=== PATIENT | female | born 2000 | race Caucasian/White ===

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

== ENCOUNTER 2018-02-09 14:50 | Emergency (ER) | payer SELFPAY ==
--- NOTE | 2018-02-09 16:41 | ER Document Report ---
ED Medical Screen (RME) - General Chief Complaint: STD Exposure Stated Complaint: PAINFUL URINATION/STD CHECK Time Seen by Provider: 02/09/18 16:35 TRAVEL OUTSIDE OF THE [place] IN LAST 30 DAYS: No - Related Data Allergies/Adverse Reactions: No Known Allergies Allergy (Verified 02/09/18 14:51) Past Medical History Pulmonary Medical History: Reports: Hx Pneumonia Renal/ Medical History: Denies: Hx Peritoneal Dialysis Past Surgical History: Reports: Hx Orthopedic Surgery - Immunizations Immunizations up to date: Yes Hx Diphtheria, Pertussis, Tetanus Vaccination: Yes Physical Exam - Vital signs Vitals: Temp Pulse Resp BP Pulse Ox 99.5 F 76 16 112/42 L 99 02/09/18 14:55 02/09/18 14:55 02/09/18 14:55 02/09/18 14:55 02/09/18 14:55 Course - Re-evaluation Re-evalutation: Dysuria with pelvic discharge. I have seen and evaluated this patient in rapid medical exam. They will require reassessment potentially further diagnostics and a disposition determination from a secondary provider. - Vital Signs Vital signs: Temp Pulse Resp BP Pulse Ox 98.9 F 74 16 114/58 L 100 02/09/18 19:13 02/09/18 19:13 02/09/18 19:13 02/09/18 19:13 02/09/18 19:13 - Laboratory Laboratory results interpreted by me: 02/09/18 16:35 Urine Protein 100 H Ur Leukocyte Esterase LARGE H Doctor's Discharge - Discharge Clinical Impression: Urinary tract infection, Bacterial vaginosis Condition: Good Disposition: HOME, SELF-CARE Instructions: Cephalexin ([facility]), Urinary Tract Infection ([facility]) Additional Instructions: You were seen in the emergency department this afternoon for a urinary tract infection and bacterial vaginosis. Please take the medication and its entire T to help resolve your symptoms. You have also been given a shot of antibiotic and a azithromycin to preemptively treat for GC/chlamydia. If you develop high fever, develop severe pelvic pain, pass out, or have any other concerning symptoms please immediately return to the emergency department. VAGINOSIS, BACTERIAL: Your exam shows you have bacterial vaginosis. This condition is due to an overgrowth of bacteria in the vagina. Symptoms may include vaginal itching or pain, a smelly discharge, and sometimes burning with urination. Normally this is not transmitted by sexual contact. Vaginosis can be treated with oral or topical antibiotics. Metronidazole (Flagyl) pills are usually effective. Topical vaginal creams include Cleocin and Metro-Gel. You should avoid sexual contact until your symptoms are all better. Call the doctor if you develop pelvic pain, fever, or problems with urination, or if you don't improve as expected. ANTIBIOTIC THERAPY: You have been given an antibiotic prescription. It's important that you take all the medication, unless instructed otherwise by your physician. Failure to complete the entire course can result in relapse of your condition. Common side effects of antibiotics include nausea, intestinal cramping, or diarrhea. Women may develop vaginal yeast infections, and babies can get yeast (thrush) in the mouth following the use of antibiotics. Contact your physician if you develop significant side effects from this medication. Allergy to this antibiotic can result in hives, wheezing, faintness, or itching. If symptoms of allergy occur, stop the medication and call the doctor. CEPHALOSPORINS: An antibiotic of the cephalosporin class has been prescribed. This type of antibiotic covers a wide variety of infections, including those of the skin, lungs, middle ear, and urinary tract. This antibiotic is somewhat similar to the penicillin family. In rare cases, a person who is allergic to penicillin will also be allergic to this medication. If you have had a severe allergic reaction to penicillin, and have not taken this antibiotic since that time, notify your doctor. Antibiotics which cover many germs ("broad spectrum" antibiotics) are more likely to cause diarrhea or "yeast" infections. Women prone to vaginal yeast problems may suffer an attack after taking this antibiotic. In infants, oral thrush (white spots "stuck" on the cheek) or yeast diaper rash may result. See your doctor if these problems occur. Call the doctor at once if you develop hives, itching, shortness of breath, or lightheadedness AZITHROMYCIN: Azithromycin (Zithromax) is a broad spectrum antibiotic in the same class as erythromycin. It can treat a variety of bacterial infections, but is most frequently used for respiratory infections. Azithromycin is extremely long-lasting. It accumulates in body tissues and continues to kill bacteria for many days. In order to improve absorption, Azithromycin should be taken at least one hour before or two hours after a meal. It does not have the same strong tendency to upset the stomach as erythromycin and is usually very well tolerated. Patients who have had a rash or other true allergic reactions to erythromycin should not take this medication. Call if you develop gastroint estinal distress, severe diarrhea, rash, hives, itching, or shortness of breath. METRONIDAZOLE: Metronidazole (Flagyl) has been prescribed. This medication is used to kill a type of bacteria called anaerobes, and protozoan parasites such as trichomonas and Giardia. Flagyl often causes a metallic taste in the mouth and mild nausea. Do not use alcohol in any form with Flagyl (including alcohol in medication elixirs). Flagyl interacts with alcohol to cause flushing, palpitations, headache, stomach cramps, and vomiting. Do not use Flagyl if you are taking Antabuse (disulfiram). Call the doctor at once if you develop rash, shortness of breath, itching, or lightheadedness. FOLLOW-UP CARE: If you have been referred to a physician for follow-up care, call the physicians office for an appointment as you were instructed or within the next two days. If you experience worsening or a significant change in your symptoms, notify the physician immediately or return to the Emergency Department at any time for re-evaluation. Prescriptions: Cephalexin Monohydrate [Keflex 500 mg Capsule] 500 mg PO BID 7 Days capsule Metronidazole [Flagyl 500 mg Tablet] 500 mg PO TID #30 tablet
[2018-02-09 17:22] LABS: APPEARANCE,URINE TURBID; BILIRUBIN,URINE NEGATIVE (NEGATIVE); GLUCOSE, URINE NEGATIVE (NEGATIVE); KETONES,URINE NEGATIVE (NEGATIVE); LEUKOCYTE ESTERASE,URINE LARGE (NEGATIVE); NITRITE,URINE NEGATIVE (NEGATIVE); PROTEIN,URINE 100 mg/dL (NEGATIVE); URINE SPECIFIC GRAVITY 1.027; UROBILINOGEN,URINE NEGATIVE mg/dL (<2.0)
[2018-02-09 17:28] LABS: BACTERIA (WET MOUNT) 4+ BACTERIA SEEN; EPITHELIALS (WET MOUNT) 4+ EPITHELIALS SEEN; RBCS (WET MOUNT) NO RBCS SEEN; T.VAGINALIS (WET MOUNT) NO TRICHOMONAS SEEN; WBCS (WET MOUNT) 4+ WBCS SEEN; YEAST (WET MOUNT) NO YEAST SEEN
[2018-02-09 17:37] LABS: COLOR,URINE YELLOW
[2018-02-09] MEDS ORDERED: CEFTRIAXONE INJ 1000 MG VIAL IM ONE (18:29)
[2018-02-09] MEDS ORDERED: METRONIDAZOLE 500 MG TABLET PO ONE (18:29)
[2018-02-09] MEDS ORDERED: AZITHROMYCIN 250 MG TABLET PO ONE (18:29)
--- NOTE | 2018-02-09 18:43 | ER Document Report ---
ED General - General Chief Complaint: STD Exposure Stated Complaint: PAINFUL URINATION/STD CHECK Time Seen by Provider: 02/09/18 16:35 Notes: 18-year-old sexually active female presents to the emergency department for dysuria and suprapubic pain. She states she has had the symptoms for 2 days and it "gold when I urinate". She also says that she is having "pelvic bone pain". She is concerned that she is been exposed to an STD. She is not on control. She is with the same partner. She denies any fevers, chills, nausea, vomiting, shortness of breath, chest pain, abdominal pain, diarrhea, abnormal vaginal discharge. She complains of dysuria, denies urinary frequency, denies urinary urgency. TRAVEL OUTSIDE OF THE [place] IN LAST 30 DAYS: No - Related Data Allergies/Adverse Reactions: No Known Allergies Allergy (Verified 02/09/18 14:51) Past Medical History - Social History Smoking Status: Current Every Day Smoker Frequency of alcohol use: None Drug Abuse: Marijuana, Other Family History: Reviewed & Not Pertinent Patient has suicidal ideation: No Patient has homicidal ideation: No Pulmonary Medical History: Reports: Hx Pneumonia Renal/ Medical History: Denies: Hx Peritoneal Dialysis Past Surgical History: Reports: Hx Orthopedic Surgery - Immunizations Immunizations up to date: Yes Hx Diphtheria, Pertussis, Tetanus Vaccination: Yes Review of Systems - Review of Systems Constitutional: See HPI EENT: See HPI Cardiovascular: See HPI Respiratory: See HPI Gastrointestinal: See HPI Genitourinary: See HPI Female Genitourinary: See HPI Musculoskeletal: No symptoms reported Skin: No symptoms reported Hematologic/Lymphatic: No symptoms reported Neurological/Psychological: No symptoms reported Physical Exam - Vital signs Vitals: Temp Pulse Resp BP Pulse Ox 99.5 F 76 16 112/42 L 99 02/09/18 14:55 02/09/18 14:55 02/09/18 14:55 02/09/18 14:55 02/09/18 14:55 - Notes Notes: Reviewed vital signs and nursing note as charted by RN. CONSTITUTIONAL: Well-appearing, well-nourished, acting appropriately for age HEAD: Normocephalic, atraumatic, no swelling EYES: PERRL, Conjunctivae clear, no drainage, EOMI, no scleral icterus ENT: External ears without lesions, External auditory canal is patent, airway patent, mucous membranes pink and moist NECK: Supple, no cervical lymphadenopathy, no masses CARD: Regular rate and rhythm, no murmurs, no rubs, no gallops, capillary refill < 2 seconds, symmetric pulses RESP: The lungs are clear to auscultation bilaterally, no wheezing, no rales, no rhonchi. Respiratory rate and effort are normal, normal chest excursion. No respiratory distress, no retractions, no stridor, no nasal flaring, no accessory muscle use. ABD/GI: Normal bowel sounds, non-distended, soft, non-tender, no rebound, no guarding, no palpable organomegaly EXT: Normal ROM in all joints, non-tender to palpation, no effusions, no edema SKIN: Normal color for age and race, warm, dry, good turgor, no acute lesions noted NEURO: No facial asymmetry, moves all extremities equally, motor and sensory function intact Course - Re-evaluation Re-evalutation: 02/09/18 18:48 18-year-old female presents emergency department for dysuria and suprapubic tenderness. Symptoms have been present for 2 days. She denies any other symptoms. Urinalysis results consistent for urinary tract infection. Patient performed self vaginal swab and results are positive for bacterial vaginosis. Trichomoniasis negative. GC chlamydia still pending. Will treat preemptively with Rocephin 1 gram IM and azithromycin 1 g p.o. Give first dose of Flagyl 500 mg p.o. for bacterial vaginosis and send patient home with a prescription for 10-day course 3 times daily. Plan is to give patient a prescription for Keflex 500 mg p.o. that she will take twice daily for 7 days. She is stable for discharge. - Vital Signs Vital signs: Temp Pulse Resp BP Pulse Ox 98.9 F 74 16 114/58 L 100 02/09/18 19:13 02/09/18 19:13 02/09/18 19:13 02/09/18 19:13 02/09/18 19:13 - Laboratory Laboratory results interpreted by me: 02/09/18 16:35 Urine Protein 100 H Ur Leukocyte Esterase LARGE H Discharge - Discharge Clinical Impression: Bacterial vaginosis Urinary tract infection Qualifiers: Urinary tract infection type: acute cystitis Hematuria presence: without hematuria Qualified Code(s): N30.00 - Acute cystitis without hematuria Condition: Good Disposition: HOME, SELF-CARE Instructions: Cephalexin ([facility]), Urinary Tract Infection ([facility]) Additional Instructions: You were seen in the emergency department this afternoon for a urinary tract infection and bacterial vaginosis. Please take the medication and its entire T to help resolve your symptoms. You have also been given a shot of antibiotic and a azithromycin to preemptively treat for GC/chlamydia. If you develop high fever, develop severe pelvic pain, pass out, or have any other concerning symptoms please immediately return to the emergency department. VAGINOSIS, BACTERIAL: Your exam shows you have bacterial vaginosis. This condition is due to an overgrowth of bacteria in the vagina. Symptoms may include vaginal itching or pain, a smelly discharge, and sometimes burning with urination. Normally this is not transmitted by sexual contact. Vaginosis can be treated with oral or topical antibiotics. Metronidazole (Flagyl) pills are usually effective. Topical vaginal creams include Cleocin and Metro-Gel. You should avoid sexual contact until your symptoms are all better. Call the doctor if you develop pelvic pain, fever, or problems with urination, or if you don't improve as expected. ANTIBIOTIC THERAPY: You have been given an antibiotic prescription. It's important that you take all the medication, unless instructed otherwise by your physician. Failure to complete the entire course can result in relapse of your condition. Common side effects of antibiotics include nausea, intestinal cramping, or diarrhea. Women may develop vaginal yeast infections, and babies can get yeast (thrush) in the mouth following the use of antibiotics. Contact your physician if you develop significant side effects from this medication. Allergy to this antibiotic can result in hives, wheezing, faintness, or itching. If symptoms of allergy occur, stop the medication and call the doctor. CEPHALOSPORINS: An antibiotic of the cephalosporin class has been prescribed. This type of antibiotic covers a wide variety of infections, including those of the skin, lungs, middle ear, and urinary tract. This antibiotic is somewhat similar to the penicillin family. In rare cases, a person who is allergic to penicillin will also be allergic to this medication. If you have had a severe allergic reaction to penicillin, and have not taken this antibiotic since that time, notify your doctor. Antibiotics which cover many germs ("broad spectrum" antibiotics) are more likely to cause diarrhea or "yeast" infections. Women prone to vaginal yeast problems may suffer an attack after taking this antibiotic. In infants, oral thrush (white spots "stuck" on the cheek) or yeast diaper rash may result. See your doctor if these problems occur. Call the doctor at once if you develop hives, itching, shortness of breath, or lightheadedness AZITHROMYCIN: Azithromycin (Zithromax) is a broad spectrum antibiotic in the same class as erythromycin. It can treat a variety of bacterial infections, but is most frequently used for respiratory infections. Azithromycin is extremely long-lasting. It accumulates in body tissues and continues to kill bacteria for many days. In order to improve absorption, Azithromycin should be taken at least one hour before or two hours after a meal. It does not have the same strong tendency to upset the stomach as erythromycin and is usually very well tolerated. Patients who have had a rash or other true allergic reactions to erythromycin should not take this medication. Call if you develop gastrointestinal distress, severe diarrhea, rash, hives, itching, or shortness of breath. METRONIDAZOLE: Metronidazole (Flagyl) has been prescribed. This medication is used to kill a type of bacteria called anaerobes, and protozoan parasites such as trichomonas and Giardia. Flagyl often causes a metallic taste in the mouth and mild nausea. Do not use alcohol in any form with Flagyl (including alcohol in medication elixirs). Flagyl interacts with alcohol to cause flushing, palpitations, headache, stomach cramps, and vomiting. Do not use Flagyl if you are taking Antabuse (disulfiram). Call the doctor at once if you develop rash, shortness of breath, itching, or lightheadedness. FOLLOW-UP CARE: If you have been referred to a physician for follow-up care, call the physicians office for an appointment as you were instructed or within the next two days. If you experience worsening or a significant change in your symptoms, notify the physician immediately or return to the Emergency Department at any time for re-evaluation. Prescriptions: RX: Cephalexin Monohydrate [Keflex 500 mg Capsule] 500 mg PO BID 7 Days capsule Metronidazole [Flagyl 500 mg Tablet] 500 mg PO TID #30 tablet
[2018-02-09 18:51] LABS: CHLAM PCR NOT DETECTED (NOT DETECT); GON PCR NOT DETECTED (NOT DETECT)
[2018-02-09] MEDS ORDERED: LIDOCAINE 1% INJ (10 MG/ML) 10 ML MDV ONE (18:56)
[2018-02-09 19:14] VITALS: BP 114/58
== END 2018-02-09 19:13 | disposition home or self-care (01) ==
LOC: ER 14:50
DX: N30.00 Acute cystitis without hematuria (principal); N76.0 Acute vaginitis; B96.89 Other specified bacterial agents as the cause of diseases classified elsewhere; R10.2 Pelvic and perineal pain; F17.200 Nicotine dependence, unspecified, uncomplicated
CPT/HCPCS: 99283; 96372; 87086; 87210; 81025; 87088; 81001; 87186; 87491; 87591; J0696

== ENCOUNTER 2018-06-02 14:53 | Emergency (ER) | payer SELFPAY ==
[2018-06-02 16:17] VITALS: BP 125/63
[2018-06-02] MEDS ORDERED: NORMAL SALINE 1000 ML 1,000 ML IV ONE (17:18)
[2018-06-02] MEDS ORDERED: METOCLOPRAMIDE HCL INJ/PF 10 MG/2 ML SDV IV ONE (17:18)
[2018-06-02 17:36] LABS: APPEARANCE,URINE CLEAR; BILIRUBIN,URINE NEGATIVE (NEGATIVE); COLOR,URINE STRAW; GLUCOSE, URINE NEGATIVE (NEGATIVE); KETONES,URINE NEGATIVE (NEGATIVE); LEUKOCYTE ESTERASE,URINE NEGATIVE (NEGATIVE); NITRITE,URINE NEGATIVE (NEGATIVE); PROTEIN,URINE NEGATIVE (NEGATIVE); URINE SPECIFIC GRAVITY 1.012; UROBILINOGEN,URINE NEGATIVE mg/dL (<2.0)
--- NOTE | 2018-06-02 17:42 | ER Document Report ---
ED General - General Chief Complaint: Abdominal Cramping Stated Complaint: ABDOMINAL CRAMPING Time Seen by Provider: 06/02/18 17:16 Mode of Arrival: Ambulatory Information source: Patient TRAVEL OUTSIDE OF THE [place] IN LAST 30 DAYS: No - HPI Patient complains to provider of: Lower abdominal cramping, irregular., Nausea vomiting Onset: Last week Onset/Duration: Persistent Quality of pain: Cramping Severity: Moderate Pain Level: 3 Associated symptoms: denies: Chills, Fever Exacerbated by: Denies Relieved by: Denies Similar symptoms previously: No Recently seen / treated by doctor: No Notes: 18-year-old female coming in today for irregular periods, lower abdominal cramping, spotting, with nausea and vomiting. She is concerned about being . History of methamphetamine abuse. - Related Data Allergies/Adverse Reactions: No Known Allergies Allergy (Verified 06/02/18 16:49) Past Medical History - General Information source: Patient - Social History Smoking Status: Current Every Day Smoker Frequency of alcohol use: Social Drug Abuse: Marijuana, Methamphetamine Family History: Reviewed & Not Pertinent Patient has suicidal ideation: No Patient has homicidal ideation: No Pulmonary Medical History: Reports: Hx Pneumonia Renal/ Medical History: Denies: Hx Peritoneal Dialysis Past Surgical History: Reports: Hx Orthopedic Surgery - Immunizations Immunizations up to date: Yes Hx Diphtheria, Pertussis, Tetanus Vaccination: Yes Review of Systems - Review of Systems Notes: Constitutional: No fevers. No chills. EENT: No eye redness. No eye pain. No ear pain. No sore throat. Cardiovascular: No chest pain. No palpitations. Respiratory: No cough. No shortness of breath. No respiratory distress. Gastrointestinal: Lower abdominal cramping, nausea and vomiting Genitourinary: Vaginal spotting Musculoskeletal: Atraumatic. No swelling. No deformities. Skin: No rash or lesions. Lymphatic: No swollen lymph nodes. Neurologic: No headache. No syncope. Psychiatric: No suicidal or homicidal ideation. Physical Exam - Vital signs Vitals: Temp Pulse Resp BP Pulse Ox 98.4 F 82 16 125/63 99 06/02/18 16:16 06/02/18 16:16 06/02/18 16:16 06/02/18 16:16 06/02/18 16:16 - Notes Notes: General: Well-developed, well-nourished. In no acute distress. Non-toxic appearing. Cardiac: Well-perfused. Regular rate and rhythm. No murmurs, rubs, or gallops. Pulmonary: No respiratory distress. No cyanosis. Bilateral lung fiels are clear to auscultation. Abdominal: Non-distended. Non-rigid. Tenderness palpation in the right lower quadrant. No guarding or rebound. HEENT: Head is atraumatic. Conjunctivae not reddened. No tearing. PERRL. EOMI. Orbits atraumatic. No periorbital swelling or erythema. Oropharynx is without erythema, swelling, or exudates. Neck: Supple. No adenopathy. No meningismus. Dermatologic: Warm with good turgor. No rash. Atraumatic. Chest: Atraumatic. No chest wall tenderness to palpation. Musculoskeletal: Moves all extremities well. No range of motion deficits. no muscular or joint tenderness. No paraspinal muscle tenderness. no midline spinal tenderness or step-off. Genitourinary: Examination deferred Neurologic: No gross neurologic deficits. Psychiatric: Normal mood. Course - Re-evaluation Re-evalutation: 06/02/18 17:41 Patient's test is positive. Because of her right lower quadrant tenderness, were going to do the full labs and work-up including pelvic and ultrasound. We will also get her blood typing given that she is bleeding 06/02/18 18:05 Patient is extremely anxious and has had a change of heart. Wants to leave immediately. Will not give any reasons. She is advised that she is leaving AGAINST MEDICAL ADVICE and leaving without further evaluation could be detrimental to her health leading up to permanent disability and . She understands the risks that she is taking and will sign the necessary paperwork. She is aware that she may return at any time to the hospital to get worked up for this. - Vital Signs Vital signs: Temp Pulse Resp BP Pulse Ox 98.4 F 82 16 125/63 99 06/02/18 16:16 06/02/18 16:16 06/02/18 16:16 06/02/18 16:16 06/02/18 16:16 - Laboratory Result Diagrams: 06/02/18 17:57 06/02/18 17:57 Laboratory results interpreted by me: 06/02/18 16:50 Urine HCG, Qual POSITIVE H Discharge - Discharge Clinical Impression: Right lower quadrant pain, History of methamphetamine abuse, History of cannabis abuse, Left against medical advice Qualifiers: Weeks of gestation: unspecified Qualified Code(s): Z34.90 - Encounter for supervision of normal , unspecified, unspecified trimester Condition: Stable Disposition: AGAINST MEDICAL ADVICE
[2018-06-02 18:08] LABS: ABSOLUTE BASOPHILS # (AUTO) 0.1 10^3/uL (0.0-0.2); ABSOLUTE LYMPHOCYTES (AUTO) 2.4 10^3/uL (0.5-4.7); ABSOLUTE MONOCYTES (AUTO) 0.8 10^3/uL (0.1-1.4); ABSOLUTE NEUT (AUTO) 9.4 10^3/uL (1.7-8.2); BASOPHILS % (AUTO) 0.9 % (0-2); EOSINOPHILS % (AUTO) 0.4 % (0-6); HEMATOCRIT 34.3 % (36.0-47.0); HEMOGLOBIN 11.2 g/dL (12.0-15.5); LYMPHOCYTES % (AUTO) 19.2 % (13-45); MEAN CORPUSCULAR HEMOGLOBIN 24.3 pg (27.0-33.4); MEAN CORPUSCULAR HGB CONC 32.6 g/dL (32.0-36.0); MEAN CORPUSCULAR VOLUME 75 fl (80-97); PLATELET COUNT 341 10^3/uL (150-450); RED CELL DISTRIBUTION WIDTH 16.2 % (11.5-14.0); SEGMENTED NEUTROPHILS % (AUTO) 73.5 % (42-78); TOTAL CELLS COUNTED % (AUTO) 100 %; WHITE BLOOD COUNT 12.7 10^3/uL (4.0-10.5)
== END 2018-06-02 18:17 | disposition left against medical advice (07) ==
LOC: ER 14:53
DX: Z53.21 Procedure and treatment not carried out due to patient leaving prior to being seen by health care provider (principal); Z32.01 Encounter for pregnancy test, result positive; O46.91 Antepartum hemorrhage, unspecified, first trimester; O21.9 Vomiting of pregnancy, unspecified; O26.899 Other specified pregnancy related conditions, unspecified trimester; R10.31 Right lower quadrant pain; R10.9 Unspecified abdominal pain; R10.30 Lower abdominal pain, unspecified; O99.330 Smoking (tobacco) complicating pregnancy, unspecified trimester
CPT/HCPCS: 99284; 96374; 86900; 86901; 36415; 85025; 81025; 81001; J2765; J7030

== ENCOUNTER → 2018-06-20 | Outpatient (CLI) | payer SELFPAY ==
--- NOTE | 2018-06-20 15:31 | RADIOLOGY REPORT (SQ) ---
EXAM DESCRIPTION: U/S [id number] TRNABD 1GES W/ODOP COMPLETED DATE/TIME: 06/20/2018 2:24 pm REASON FOR STUDY: ENCTR FOR SUPERVISION OF NORMAL 1ST , 1ST TRIMESTER (Z34.01) Z34.01 ENCN TR FOR SUPRVSN OF NORMAL FIRST PREG, FIRST TRIMES COMPARISON: None. TECHNIQUE: Transvaginal static and realtime grayscale images acquired of the pelvis. Additional jay cted spectral and color Doppler images recorded. All images stored on PACs. bHCG: Not available. CLINICAL DATES: YURI: 02/18/2019. EGA: 5 weeks 2 days LIMITATIONS: None. FINDINGS: FETUS: No IUP is visualized. GESTATIONAL SAC: Not visualized CRL: Not visualized. FHR: Not visualized. UTERUS: The uterus measures 7.4 x 4.1 x 2.9 cm. No masses. No anomalies. CERVICAL LENGTH: 2.4 cm Closed. RIGHT ADNEXA: The right ovary measures 4.6 x 3.7 x 3.1 cm. A 3.3 x 2.8 x 2.6 cm cyst. Normal ovary with normal vascular flow. No adnexal free fluid. LEFT ADNEXA: The left ovary measures 2.9 x 1.7 x 1.4 cm. Normal ovary with normal vascular flow. No adnexal free fluid. No adnexal masses. FREE FLUID: None. OTHER: The endometrial stripe measures 7.4 mm. IMPRESSION: 1. No IUP is visualized. Correlation with lab values, clinical correlation and short-t erm follow-up examination suggested. 2. Right ovarian cyst. TECHNICAL DOCUMENTATION: JOB ID: [id number]- All Rights Reserved rev-06/24 Reading location - IP/workstation name: [email or web address]
== END ==
LOC: RAD 12:46
PROVIDERS: ATTEND Midwife
DX: Z34.01 Encounter for supervision of normal first pregnancy, first trimester (principal)
CPT/HCPCS: 76801

== ENCOUNTER 2018-07-02 12:27 | Emergency (ER) | payer SELFPAY ==
[2018-07-02] MEDS ORDERED: ACETAMINOPHEN 325 MG TABLET PO ONE (13:10)
--- NOTE | 2018-07-02 13:11 | ER Document Report ---
ED Medical Screen (RME) - General Chief Complaint: Vag Bleeding, +preg <12wks Stated Complaint: CRAMPING/VAGINAL BLEEDING Time Seen by Provider: 07/02/18 13:05 Primary Care Provider: SONYA CARR CNM [Primary Care Provider] - Follow up as needed TRAVEL OUTSIDE OF THE [place] IN LAST 30 DAYS: No - HPI Notes: 07/02/18 13:09 Patient is a 18-year-old female G1, P0 approximately 8 weeks by gestation who presents complaining of heavy bleeding, clots, cramping over the past 2 days. Patient is concerned that she may be miscarrying. Patient is continuing to complain of abdominal cramping at this time. Patient states that she has had ultrasounds earlier in the , but they never visualize the . Patient is also questioning ectopic . She is otherwise having normal bowel movements and urinating normally. Denies ENGEL, fever, neck pain, URI, CP, SOB, or rash. I have treated and performed a rapid initial assessment of this patient. A comprehensive ED assessment and evaluation of the patient, analysis of test results and completion of medical decision making process will be conducted by additional ED providers. PHYSICAL EXAMINATION: GENERAL: No acute respiratory distress. A&Ox4. Answers questions appropriately. Patient does appear uncomfortable holding her lower pelvic area. LUNGS: Breath sounds clear to auscultation bilaterally and equal. No wheezes rales or rhonchi. HEART: Regular rate and rhythm without murmurs, rubs, gallops. - Related Data Allergies/Adverse Reactions: No Known Allergies Allergy (Verified 07/02/18 12:28) Past Medical History Pulmonary Medical History: Reports: Hx Pneumonia Renal/ Medical History: Denies: Hx Peritoneal Dialysis Past Surgical History: Reports: Hx Orthopedic Surgery - Immunizations Immunizations up to date: Yes Hx Diphtheria, Pertussis, Tetanus Vaccination: Yes Physical Exam - Vital signs Vitals: Temp Pulse Resp BP Pulse Ox 98 F 101 H 20 139/107 H 98 07/02/18 12:30 07/02/18 12:30 07/02/18 12:30 07/02/18 12:30 07/02/18 12:30 Course - Vital Signs Vital signs: Temp Pulse Resp BP Pulse Ox 98 F 101 H 20 139/107 H 98 07/02/18 12:30 07/02/18 12:30 07/02/18 12:30 07/02/18 12:30 07/02/18 12:30 Doctor's Discharge - Discharge Referrals: SONYA CARR CNM [Primary Care Provider] - Follow up as needed
[2018-07-02 14:29] LABS: ABSOLUTE BASOPHILS # (AUTO) 0.1 10^3/uL (0.0-0.2); ABSOLUTE EOSINOPHILS # (AUTO) 0.1 10^3/uL (0.0-0.6); ABSOLUTE LYMPHOCYTES (AUTO) 2.9 10^3/uL (0.5-4.7); ABSOLUTE MONOCYTES (AUTO) 0.7 10^3/uL (0.1-1.4); ABSOLUTE NEUT (AUTO) 9.1 10^3/uL (1.7-8.2); BASOPHILS % (AUTO) 0.8 % (0-2); EOSINOPHILS % (AUTO) 0.5 % (0-6); HEMATOCRIT 36.6 % (36.0-47.0); HEMOGLOBIN 11.4 g/dL (12.0-15.5); LYMPHOCYTES % (AUTO) 22.7 % (13-45); MEAN CORPUSCULAR HEMOGLOBIN 23.3 pg (27.0-33.4); MEAN CORPUSCULAR VOLUME 75 fl (80-97); MONOCYTES % (AUTO) 5.7 % (3-13); PLATELET COUNT 371 10^3/uL (150-450); RED BLOOD COUNT 4.88 10^6/uL (3.72-5.28); RED CELL DISTRIBUTION WIDTH 16.4 % (11.5-14.0); SEGMENTED NEUTROPHILS % (AUTO) 70.3 % (42-78); TOTAL CELLS COUNTED % (AUTO) 100 %; WHITE BLOOD COUNT 12.9 10^3/uL (4.0-10.5)
[2018-07-02 14:39] LABS: APPEARANCE,URINE CLOUDY; BILIRUBIN,URINE NEGATIVE (NEGATIVE); COLOR,URINE YELLOW; GLUCOSE, URINE NEGATIVE (NEGATIVE); KETONES,URINE NEGATIVE (NEGATIVE); LEUKOCYTE ESTERASE,URINE NEGATIVE (NEGATIVE); NITRITE,URINE NEGATIVE (NEGATIVE); PROTEIN,URINE 30 mg/dL (NEGATIVE); URINE SPECIFIC GRAVITY 1.025; UROBILINOGEN,URINE NEGATIVE mg/dL (<2.0)
--- NOTE | 2018-07-02 15:08 | RADIOLOGY REPORT (SQ) ---
EXAM DESCRIPTION: U/S OB TRANSVAG W/DOPPLER COMPLETED DATE/TIME: 07/02/2018 2:47 pm REASON FOR STUDY: approx 8 wks preg, heavy bleeding/cramping COMPARISON: None. TECHNIQUE: Transvaginal static and realtime grayscale images acquired of the pelvis. Additional jay cted spectral and color Doppler images recorded. All images stored on PACs. CLINICAL AGE: 7 weeks BHCG: Pending. LIMITATIONS: None. FINDINGS: UTERUS: No visualized intrauterine . RIGHT ADNEXA: Normal ovary with normal vascular flow. No adnexal free fluid. No adnexal masses. LEFT ADNEXA: Ovary not identified due to poor acoustical window. No adnexal free fluid. No adnexal masses. FREE FLUID: None. OTHER: No other significant finding. IMPRESSION: NO VISUALIZED INTRA- OR EXTRAUTERINE . bHCG LEVEL NOT AVAILABLE FOR CORRELATION WITH US FINDINGS. ECTOPIC CANNOT BE EXCLUDED. FOLLOW-UP ULTRASOUND AND SERIAL BHCG LEVELS STRONGLY RECOMMENDED TO ACCURATELY ASSESS STATU S. TECHNICAL DOCUMENTATION: JOB ID: [id number] [employer]- All Rights Reserved Reading location - IP/workstation name: [email or web address]
--- NOTE | 2018-07-02 16:37 | ER Document Report ---
ED GI/ - General Chief Complaint: Vag Bleeding, +preg <12wks Stated Complaint: CRAMPING/VAGINAL BLEEDING Time Seen by Provider: 07/02/18 13:05 Primary Care Provider: SONYA CARR CNM [NO LOCAL MD] - Follow up as needed Mode of Arrival: Ambulatory Information source: Patient TRAVEL OUTSIDE OF THE [place] IN LAST 30 DAYS: No - HPI Patient complains to provider of: Vaginal bleeding Notes: 07/02/18 16:35 Patient here with complaints of vaginal bleeding. Patient states she is approximately 2 months . She been seen at the [facility] was also seen here a few weeks ago. On her last visit here, ultrasound showed no uterine . She was supposed to follow-up with health department and was late to her appointment, therefore she has an ultrasound and hormone level check as scheduled in the next few weeks at the health department. 2 days ago started having some vaginal bleeding and is concerned she may have a miscarriage. She does report that the test she takes at home that the line is getting less intense as time goes on. She was having some lower abdominal cramping but denies any pain now. She had some nausea, no vomiting or diarrhea. No fever. No dysuria. No chest pain or shortness of breath. She denies any other specific complaints at this time. - Related Data Allergies/Adverse Reactions: No Known Allergies Allergy (Verified 07/02/18 12:28) Past Medical History - General Last Menstrual Period: unknown - Social History Smoking Status: Current Every Day Smoker Chew tobacco use (# tins/day): No Frequency of alcohol use: None Drug Abuse: Marijuana Family History: Reviewed & Not Pertinent Patient has suicidal ideation: No Patient has homicidal ideation: No Pulmonary Medical History: Reports: Hx Pneumonia Renal/ Medical History: Denies: Hx Peritoneal Dialysis Past Surgical History: Reports: Hx Orthopedic Surgery - Immunizations Immunizations up to date: Yes Hx Diphtheria, Pertussis, Tetanus Vaccination: Yes Review of Systems - Review of Systems -: Yes All other systems reviewed and negative Physical Exam - Vital signs Vitals: Temp Pulse Resp BP Pulse Ox 98 F 101 H 20 139/107 H 98 07/02/18 12:30 07/02/18 12:30 07/02/18 12:30 07/02/18 12:30 07/02/18 12:30 - Notes Notes: GENERAL: alert, cooperative, nontoxic, no distress. HEAD: normocephalic, atraumatic EYES: conjunctiva pink without discharge, no external redness or swelling. EARS: no external swelling, no external redness NOSE: atraumatic, no external swelling MOUTH/THROAT: mucous membranes moist and pink, posterior pharynx without erythema, swelling, exudate. No trismus or drooling. NECK: soft, supple, full range of motion, no meningismus. CHEST: no distress, lungs clear and equal throughout. No wheezing, rales, rhonchi. CARDIAC: regular rate and rhythm, no murmur, normal capillary refill, normal pulses. No peripheral edema noted. ABDOMEN: Soft, nontender. No rebound tenderness or guarding. No mass. BACK: full range of motion, no CVA tenderness. EXTREMITIES: full range of motion of all extremities. No redness, no swelling. NEURO: alert and oriented x 3, no focal deficits, full range of motion of all extremities. PYSCH: appropriate mood, affect. Patient is cooperative. SKIN: pink, warm, dry, no rash. Course - Re-evaluation Re-evalutation: 07/02/18 16:37 Patient is nontoxic-appearing with stable vitals. Patient here with complaints of being approximately 2 months and having vaginal bleeding for the last 2 days. She is been seen at the health department as well as here. She has had an ultrasound here which showed no intrauterine . No hCG level was obtained at that visit. Patient has a be positive blood type, therefore RhoGam is not indicated at this time. Today's labs show a stable hemoglobin and white count of 11 and 12 respectively. Is unchanged from previous visit. Urinalysis shows blood but no signs of infection. Quantitative hCG is 66. This is certainly concerning for most likely a miscarriage. Ultrasound shows no intrauterine with no obvious sign of ectopic or other abnormality. Do believe that the patient needs to be reevaluated in 48 hours to have her hCG level rechecked. The level is going up, I would be more concerned for potential ectopic has not been seen on ultrasound. If level continues to drop, this would be more indicative of miscarriage which I believe is more likely the case at this time. Patient verbalized understanding of the importance of re-check in 48 hours. She was instructed to return or follow-up sooner if she develops any worsening pain, high fever, persistent vomiting, or has any further concerns. The patient's emergency department workup and current diagnosis were explained to the patient and or family. Follow-up instructions were provided. Medications if prescribed were discussed. Instructions for when to return to the emergency department including specific worrisome symptoms were discussed with the patient and/or family. 07/02/18 16:37 - Vital Signs Vital signs: Temp Pulse Resp BP Pulse Ox 98 F 101 H 20 139/107 H 98 07/02/18 12:30 07/02/18 12:30 07/02/18 12:30 07/02/18 12:30 07/02/18 12:30 - Laboratory Result Diagrams: 07/02/18 14:02 Laboratory results interpreted by me: 07/02/18 07/02/18 07/02/18 14:02 14:02 14:02 WBC 12.9 H Hgb 11.4 L MCV 75 L MCH 23.3 L MCHC 31.0 L RDW 16.4 H Absolute Neutrophils 9.1 H Beta HCG, Quant 66.27 H Urine Protein 30 H Urine Blood LARGE H - Diagnostic Test Radiology reviewed: Image reviewed, Reports reviewed - No intrauterine , no acute abnormality. Discharge - Discharge Clinical Impression: Incomplete miscarriage Condition: Stable Disposition: HOME, SELF-CARE Instructions: Miscarriage Impending ([facility]) Additional Instructions: Follow-up at the health department or back in the emergency department in 48 hours to have your hormone level rechecked. Today it was 66. Follow- up sooner if you develop any worsening pain, high fever, persistent vomiting, or have any further concerns. Referrals: SONYA CARR CNM [NO LOCAL MD] - Follow up as needed
[2018-07-02 17:04] VITALS: BP 125/55
== END 2018-07-02 17:10 | disposition home or self-care (01) ==
LOC: ER 12:27
DX: O03.4 Incomplete spontaneous abortion without complication (principal)
CPT/HCPCS: 36415; 76817; 81001; 84702; 85025; 93976; 99284

== ENCOUNTER 2018-07-06 17:06 | Emergency (ER) | payer SELFPAY ==
[2018-07-06 17:32] VITALS: BP 134/57
--- NOTE | 2018-07-06 17:40 | ER Document Report ---
HPI - HPI Time Seen by Provider: 07/06/18 17:33 Pain Level: 2 Notes: Patient is a 18-year-old female G1, P0 who believes she is about 8 weeks by gestation 4 days ago for repeat hCG. Her hCG 4 days ago when she started having cramping, bleeding was 66 which is very low and yielded a high suspicion for miscarriage. Patient was instructed to return for hCG repeat which is what she is here for today. She has not had any other cramping or bleeding. She has been feeling well. She is eating and drinking without difficulties. She is urinating normally and having normal bowel movements. Denies any headache, fever, URI, sore throat, chest pain, palpitations, syncope, cough, shortness of breath, wheeze, dyspnea, abdominal pain, nausea/vomiting/diarrhea, urinary retention, dysuria, hematuria, back pain, or rash. - ROS Systems Reviewed and Negative: Yes All other systems reviewed and negative - REPRODUCTIVE Reproductive: REPORTS: : - DERM Skin Color: Normal Past Medical History - Social History Smoking Status: Unknown if Ever Smoked Family History: Reviewed & Not Pertinent Patient has suicidal ideation: No Patient has homicidal ideation: No Pulmonary Medical History: Reports: Hx Pneumonia Renal/ Medical History: Denies: Hx Peritoneal Dialysis Past Surgical History: Reports: Hx Orthopedic Surgery - Immunizations Immunizations up to date: Yes Hx Diphtheria, Pertussis, Tetanus Vaccination: Yes Vertical Provider Document - CONSTITUTIONAL Agree With Documented VS: Yes Notes: PHYSICAL EXAMINATION: GENERAL: Well-appearing, well-nourished and in no acute distress. LUNGS: Breath sounds clear to auscultation bilaterally and equal. No wheezes rales or rhonchi. HEART: Regular rate and rhythm without murmurs, rubs, gallops. ABDOMEN: Soft, nontender, nondistended abdomen. No guarding, no rebound. No masses appreciated. Normal bowel sounds present. No CVA tenderness bilaterally. Musculoskeletal: FROM to passive/active. Strength 5+/5. Extremities: No cyanosis, clubbing, or edema b/l. Peripheral pulses 2+. Capillary refill less than 3 seconds. NEUROLOGICAL: Normal speech, normal gait. PSYCH: Normal mood, normal affect. SKIN: Warm, Dry, normal turgor, no rashes or lesions noted. - INFECTION CONTROL TRAVEL OUTSIDE OF THE [place] IN LAST 30 DAYS: No Course - Re-evaluation Re-evalutation: 07/06/18 Patient is an afebrile, well-hydrated, 18-year-old female who presents with probable miscarriage. Vitals are acceptable without significant tachycardia, tachypnea, or hypoxia. PE is otherwise unremarkable. Her abdomen is soft and nontender. She is nontoxic-appearing is able to tolerate p.o. without difficultly. hCG 4 days ago was 66. Her hCG today was 35, significantly lower than previous. No further work-up warranted at this time. Low suspicion/risk for acute appendicitis, bowel obstruction, acute cholecystitis, acute cholangitis, perforated diverticulitis, incarcerated hernia, pancreatitis, perforated ulcer, peritonitis, sepsis, pelvic inflammatory disease, ectopic , tubo-ovarian abscess, ovarian torsion, or other systemic emergent condition at this time. Patient is aware that her condition can change from initial presentation and she needs to monitor symptoms closely and seek medical attention if any acute changes. Conservative measures otherwise for symptoms. Recheck with your PCM in 3-5 days. Return to the ED with any worsening/concerning symptoms otherwise as reviewed in discharge. Patient is in agreement. - Vital Signs Vital signs: Temp Pulse Resp BP Pulse Ox 98.4 F 74 16 134/57 H 99 07/06/18 17:31 07/06/18 17:31 07/06/18 17:31 07/06/18 17:31 07/06/18 17:31 Discharge - Discharge Clinical Impression: Miscarriage, Low maternal serum human chorionic gonadotropin (hCG) Condition: Stable Disposition: HOME, SELF-CARE Additional Instructions: Maintain fluid intake Proper hygienic technique Keep the skin clean Safe sexual practices with condoms everytime and try not to get for the next couple months. Tylenol/ibuprofen as needed F/u with your PCM/OBGYN in 3-5 days for a recheck Return to the ED with any development of ENGEL/fever, trouble with vision, eye redness, worsening pain, urethral discharge, urinary retention, blood in the urine, flank pain, abdominal pain, n/v, Chest Pain, shortness of breath, joint pains, trouble breathing, or any other worsening/concerning symptoms as needed otherwise. Forms: Elevated Blood Pressure Referrals: [facility] [Provider Group] - Follow up as needed
== END 2018-07-06 18:59 | disposition home or self-care (01) ==
LOC: ER 17:06
DX: O03.9 Complete or unspecified spontaneous abortion without complication (principal)
CPT/HCPCS: 36415; 84702; 99284

== ENCOUNTER 2018-11-01 11:20 | Emergency (ER) | payer SELFPAY ==
--- NOTE | 2018-11-01 11:34 | ER Document Report ---
ED Medical Screen (RME) - General Chief Complaint: Abdominal Pain Stated Complaint: ISSUES/ABDOMINAL PAIN Time Seen by Provider: 11/01/18 11:30 Mode of Arrival: Ambulatory Information source: Patient Notes: This 18-year-old G2, P0 approximately 7 weeks last menstrual period September 12 presents to the emergency department with lower abdominal pain for the past 2 weeks that has been increasing in pain. She reports first miscarriage. She also complains of urinary frequency. Denies fever vomiting diarrhea. I have greeted and performed a rapid initial assessment of this patient. A comprehensive ED assessment and evaluation of the patient, analysis of test results and completion of the medical decision making process will be conducted by additional ED providers. Dictation of this chart was performed using voice recognition software; therefore, there may be some unintended grammatical errors. TRAVEL OUTSIDE OF THE [place] IN LAST 30 DAYS: No - Related Data Allergies/Adverse Reactions: No Known Allergies Allergy (Verified 11/01/18 11:32) Past Medical History - Social History Chew tobacco use (# tins/day): No Frequency of alcohol use: None Drug Abuse: Marijuana Pulmonary Medical History: Reports: Hx Pneumonia Renal/ Medical History: Denies: Hx Peritoneal Dialysis Past Surgical History: Reports: Hx Orthopedic Surgery - Immunizations Immunizations up to date: Yes Hx Diphtheria, Pertussis, Tetanus Vaccination: Yes
[2018-11-01 12:06] LABS: ABSOLUTE EOSINOPHILS # (AUTO) 0.1 10^3/uL (0.0-0.6); ABSOLUTE LYMPHOCYTES (AUTO) 1.8 10^3/uL (0.5-4.7); ABSOLUTE MONOCYTES (AUTO) 0.5 10^3/uL (0.1-1.4); ABSOLUTE NEUT (AUTO) 7.3 10^3/uL (1.7-8.2); BASOPHILS % (AUTO) 0.5 % (0-2); EOSINOPHILS % (AUTO) 0.7 % (0-6); HEMATOCRIT 34.4 % (36.0-47.0); HEMOGLOBIN 11.3 g/dL (12.0-15.5); LYMPHOCYTES % (AUTO) 18.6 % (13-45); MEAN CORPUSCULAR HEMOGLOBIN 24.8 pg (27.0-33.4); MEAN CORPUSCULAR HGB CONC 32.9 g/dL (32.0-36.0); MEAN CORPUSCULAR VOLUME 75 fl (80-97); MONOCYTES % (AUTO) 4.7 % (3-13); PLATELET COUNT 335 10^3/uL (150-450); RED BLOOD COUNT 4.57 10^6/uL (3.72-5.28); RED CELL DISTRIBUTION WIDTH 16.2 % (11.5-14.0); SEGMENTED NEUTROPHILS % (AUTO) 75.5 % (42-78); TOTAL CELLS COUNTED % (AUTO) 100 %; WHITE BLOOD COUNT 9.7 10^3/uL (4.0-10.5)
[2018-11-01 12:10] LABS: APPEARANCE,URINE CLOUDY; BILIRUBIN,URINE NEGATIVE (NEGATIVE); COLOR,URINE YELLOW; GLUCOSE, URINE NEGATIVE (NEGATIVE); KETONES,URINE NEGATIVE (NEGATIVE); LEUKOCYTE ESTERASE,URINE SMALL (NEGATIVE); NITRITE,URINE NEGATIVE (NEGATIVE); PROTEIN,URINE 30 mg/dL (NEGATIVE); URINE SPECIFIC GRAVITY 1.019; UROBILINOGEN,URINE NEGATIVE mg/dL (<2.0)
[2018-11-01 12:35] LABS: ALBUMIN 4.1 g/dL (3.5-5.0); ALKALINE PHOSPHATASE 72 U/L (38-126); ANION GAP 9 (5-19); ASPARTATE AMINO TRANSFERASE 38 U/L (14-36); BILIRUBIN,DIRECT 0.1 mg/dL (0.0-0.4); BILIRUBIN,TOTAL 0.3 mg/dL (0.2-1.3); BLOOD UREA NITROGEN 6 mg/dL (7-20); CALCIUM 9.6 mg/dL (8.4-10.2); CARBON DIOXIDE 25 mmol/L (22-30); CHLORIDE 104 mmol/L (98-107); GLUCOSE 79 mg/dL (75-110); POTASSIUM 4.2 mmol/L (3.6-5.0); TOTAL PROTEIN 7.5 g/dL (6.3-8.2)
--- NOTE | 2018-11-01 13:18 | ER Document Report ---
ED General - General Chief Complaint: Abdominal Pain Stated Complaint: ISSUES/ABDOMINAL PAIN Time Seen by Provider: 11/01/18 11:30 Mode of Arrival: Ambulatory TRAVEL OUTSIDE OF THE [place] IN LAST 30 DAYS: No - HPI Notes: Patient is a 18-year-old female G2, P0 approximately 7 weeks who presents complaining of lower pelvic cramping that is been intermittent for the past couple weeks. Patient was evaluated in June and was found to be miscarrying at that time. Patient is otherwise able to eat and drink, but does have decreased p.o. intake due to intermittent nausea. She is urinating normally although more frequently than usual and is having normal bowel movements. No other vaginal discharge, odor, or bleeding. She has no concern of STD or STI and does not want testing for it. Denies any headache, fever, URI, sore throat, chest pain, palpitations, syncope, cough, shortness of breath, wheeze, dyspnea, vomiting/diarrhea, urinary retention, dysuria, hematuria, back pain, or rash. - Related Data Allergies/Adverse Reactions: No Known Allergies Allergy (Verified 11/01/18 11:32) Past Medical History - General Information source: Patient - Social History Smoking Status: Current Every Day Smoker Chew tobacco use (# tins/day): No Frequency of alcohol use: None Drug Abuse: Marijuana Family History: Reviewed & Not Pertinent Patient has suicidal ideation: No Patient has homicidal ideation: No Pulmonary Medical History: Reports: Hx Pneumonia Renal/ Medical History: Denies: Hx Peritoneal Dialysis Past Surgical History: Reports: Hx Orthopedic Surgery - Immunizations Immunizations up to date: Yes Hx Diphtheria, Pertussis, Tetanus Vaccination: Yes Review of Systems - Review of Systems -: Yes All other systems reviewed and negative Physical Exam - Vital signs Vitals: Temp Pulse Resp Pulse Ox 98.7 F 83 18 100 11/01/18 11:30 11/01/18 11:30 11/01/18 11:30 11/01/18 11:30 - Notes Notes: PHYSICAL EXAMINATION: GENERAL: Well-appearing, well-nourished and in no acute distress. HEAD: Atraumatic, normocephalic. EYES: Pupils equal round and reactive to light, extraocular movements intact, sclera anicteric, conjunctiva are normal. ENT: Nares patent and without discharge. oropharynx clear without exudates. No tonsilar hypertrophy or erythema. Moist mucous membranes. NECK: Normal range of motion, supple without lymphadenopathy LUNGS: Breath sounds clear to auscultation bilaterally and equal. No wheezes rales or rhonchi. HEART: Regular rate and rhythm without murmurs, rubs, gallops. ABDOMEN: Soft, nontender, nondistended abdomen. No guarding, no rebound. Normal bowel sounds present. No CVA tenderness bilaterally. Musculoskeletal: FROM to passive/active. Strength 5+/5. Extremities: No cyanosis, clubbing, or edema b/l. Peripheral pulses 2+. Capillary refill less than 3 seconds. NEUROLOGICAL: Normal speech, normal gait. PSYCH: Normal mood, normal affect. SKIN: Warm, Dry, normal turgor, no rashes or lesions noted. Course - Re-evaluation Re-evalutation: 11/01/18 14:58 Patient is an afebrile, well-hydrated, 18-year-old female who presents to the ED with pelvic pain and intrauterine . Vitals are acceptable without any significant tachycardia, tachypnea, or hypoxia. PE is otherwise unremarkable. CBC, CMP, UA unremarkable. HCG appropriate. See TVUS, 7wks IUP. Patient is nontoxic-appearing is tolerating p.o. without any difficulties. No other labs or imaging warranted at this time based on H&P. Low suspicion/risk for acute appendicitis, bowel obstruction, acute cholecystitis, acute cholangitis, perforated diverticulitis, incarcerated hernia, pancreatitis, perforated ulcer, peritonitis, sepsis, pelvic inflammatory disease, ectopic , tubo- ovarian abscess, ovarian torsion, or other systemic emergent condition at this time. Patient is aware that her condition can change from initial presentation and she needs to monitor symptoms closely and seek medical attention if any acute changes. Conservative measures otherwise for symptoms. Recheck with your PCM/OBGYN in 3-5 days. Return to the ED with any worsening/concerning symptoms otherwise as reviewed in discharge. Patient is in agreement. - Vital Signs Vital signs: Temp Pulse Resp BP Pulse Ox 98.2 F 55 L 18 131/79 H 100 11/01/18 14:23 11/01/18 14:23 11/01/18 14:23 11/01/18 14:23 11/01/18 14:23 - Laboratory Result Diagrams: 11/01/18 11:44 11/01/18 11:44 Laboratory results interpreted by me: 11/01/18 11/01/18 11/01/18 11:44 11:44 11:44 Hgb 11.3 L Hct 34.4 L MCV 75 L MCH 24.8 L RDW 16.2 H BUN 6 L Creatinine 0.44 L AST 38 H Beta HCG, Quant 70400.00 H Urine Protein 30 H Ur Leukocyte Esterase SMALL H Discharge - Discharge Clinical Impression: Pelvic pain, Early stage of Condition: Stable Disposition: HOME, SELF-CARE Additional Instructions: Maintain fluid intake Proper hygienic technique Keep the skin clean Tylenol as needed F/u with your PCM/OBGYN in 3-5 days for a recheck Return to the ED with any development of ENGEL/fever, trouble with vision, eye redness, worsening pain, urethral discharge, urinary retention, blood in the urine, flank pain, abdominal pain, n/v, Chest Pain, shortness of breath, joint pains, trouble breathing, or any other worsening/concerning symptoms as needed otherwise. Prescriptions: Metoclopramide HCl [Reglan] 10 mg PO BID PRN #6 tablet PRN Reason: Forms: Elevated Blood Pressure Referrals: [facility] [Provider Group] - Follow up as needed
[2018-11-01 14:26] VITALS: BP 131/79
--- NOTE | 2018-11-01 14:48 | RADIOLOGY REPORT (SQ) ---
EXAM DESCRIPTION: U/S OB TRANSVAGINAL W/O DOP COMPLETED DATE/TIME: 11/01/2018 2:39 pm REASON FOR STUDY: preg abd pain COMPARISON: None. TECHNIQUE: Transvaginal static and realtime grayscale images acquired of the pelvis. Additional jay cted spectral and color Doppler images recorded. All images stored on PACs. bHCG: Not available. CLINICAL DATES: 7 week 4 day. LIMITATIONS: None. FINDINGS: FETUS: Single Living intrauterine . ULTRASOUND EGA: 7 week 0 day. ULTRASOUND YURI: 06/20/2019. EFW: Not applicable less than 20 weeks. CRL: 0.98 cm. FHR: 135 beats per minute. SURVEY: No visualized anomalies. AMNIOTIC FLUID: Adequate amount. PLACENTA: Not yet developed due to early gestation. SUBCHORIONIC BLEED: No. SIZE OF BLEED: Not applicable. UTERUS: No masses. No anomalies. CERVICAL LENGTH: 2.6 cm. Closed. RIGHT ADNEXA: Normal ovary with normal vascular flow. No adnexal free fluid. No adnexal masses. LEFT ADNEXA: Normal ovary with normal vascular flow. No adnexal free fluid. No adnexal masses. FREE FLUID: None. OTHER: No other significant finding. IMPRESSION: LIVING INTRAUTERINE . EGA 7 WEEK 0 DAY. Trimester of : First trimester - 0 to 13 weeks. TECHNICAL DOCUMENTATION: JOB ID: [id number] [employer]- All Rights Reserved rev Reading location - IP/workstation name: [email or web address]
== END 2018-11-01 15:18 | disposition home or self-care (01) ==
LOC: ER 11:20
DX: O26.891 Other specified pregnancy related conditions, first trimester (principal); R10.2 Pelvic and perineal pain; R10.9 Unspecified abdominal pain; R63.0 Anorexia; R11.0 Nausea; O99.331 Smoking (tobacco) complicating pregnancy, first trimester; Z3A.01 Less than 8 weeks gestation of pregnancy
CPT/HCPCS: 36415; 76817; 80053; 81001; 84702; 85025; 99284

== ENCOUNTER 2019-02-14 14:49 | Emergency (ER) | payer MEDICAID ==
--- NOTE | 2019-02-14 16:14 | ER Document Report ---
ED GI/ - General Chief Complaint: STD Exposure Stated Complaint: STD CHECK Time Seen by Provider: 02/14/19 15:58 Primary Care Provider: [facility] [Provider Group] - Follow up as needed Mode of Arrival: Ambulatory Information source: Patient Notes: 19-year-old female presented to ED for complaint of burning and itching with urination. She is 22 weeks . Patient is alert oriented respirations regular and unlabored. She states intermittently she does have some pain like the baby is kicking but she is not having any claims cramps like labor pain. She wanted to have STD checking as well is a urine checked. We will also send for a ultrasound. TRAVEL OUTSIDE OF THE [place] IN LAST 30 DAYS: No - HPI Patient complains to provider of: , Vaginal discharge, Other - Burning with urination x3 days itchiness started a week ago Onset: Other - Above Timing/Duration: Gradual Quality of pain: Burning Severity at maximum: Mild Severity in ED: Mild Pain Level: 2 Location: Pelvis - Cramps come and go Menstrual period history: : 2 Para: 0 heart tones (bpm): 147 EDC: 06/20/19 OB ultrasound done: Yes Associated symptoms: Urinary frequency, Urinary urgency, Vaginal discharge, Vomiting Exacerbated by: Denies Relieved by: Denies Similar symptoms previously: Yes Recently seen / treated by doctor: No - Related Data Allergies/Adverse Reactions: No Known Allergies Allergy (Verified 01/24/19 11:22) Past Medical History - General Information source: Patient - Social History Smoking Status: Never Smoker Frequency of alcohol use: None Drug Abuse: None Lives with: Family Family History: Reviewed & Not Pertinent Patient has suicidal ideation: No Patient has homicidal ideation: No - Past Medical History Cardiac Medical History: Reports: None Pulmonary Medical History: Reports: Hx Pneumonia EENT Medical History: Reports: None Neurological Medical History: Reports: None Endocrine Medical History: Reports: None Renal/ Medical History: Reports: None Malignancy Medical History: Reports: None GI Medical History: Reports: None Musculoskeletal Medical History: Reports None Skin Medical History: Reports None Psychiatric Medical History: Reports: None Traumatic Medical History: Reports: None Infectious Medical History: Reports: None Surgical Hx: Negative Past Surgical History: Reports: None, Hx Orthopedic Surgery - Immunizations Immunizations up to date: Yes Hx Diphtheria, Pertussis, Tetanus Vaccination: Yes Review of Systems - Review of Systems Constitutional: No symptoms reported EENT: No symptoms reported Cardiovascular: No symptoms reported Respiratory: No symptoms reported Gastrointestinal: Vomiting Genitourinary: Burning Female Genitourinary: , Vaginal discharge Musculoskeletal: No symptoms reported Skin: No symptoms reported Hematologic/Lymphatic: No symptoms reported Neurological/Psychological: No symptoms reported Physical Exam - Vital signs Vitals: Temp Pulse Resp BP Pulse Ox 98.7 F 87 18 101/49 L 100 02/14/19 15:45 02/14/19 15:45 02/14/19 15:45 02/14/19 15:45 02/14/19 15:45 Interpretation: Normal - General General appearance: Appears well, Alert - HEENT Head: Normocephalic, Atraumatic Eyes: Normal Pupils: PERRL - Respiratory Respiratory status: No respiratory distress Chest status: Nontender Breath sounds: Normal Chest palpation: Normal - Cardiovascular Rhythm: Regular Heart sounds: Normal auscultation Murmur: No - Abdominal Inspection: Normal Distension: No distension Bowel sounds: Normal Tenderness: Nontender Organomegaly: No organomegaly - Back Back: Normal, Nontender - Extremities General upper extremity: Normal inspection, Nontender, Normal color, Normal ROM, Normal temperature General lower extremity: Normal inspection, Nontender, Normal color, Normal ROM, Normal temperature, Normal weight bearing. No: Donell's sign - Neurological Neuro grossly intact: Yes Cognition: Normal Orientation: AAOx4 Elle Coma Scale Eye Opening: Spontaneous Elle Coma Scale Verbal: Oriented [place] Coma Scale Motor: Obeys Commands Elle Coma Scale Total: 15 Speech: Normal Motor strength normal: LUE, RUE, LLE, RLE Sensory: Normal - Psychological Associated symptoms: Normal affect, Normal mood - Skin Skin Temperature: Warm Skin Moisture: Dry Skin Color: Normal Course - Re-evaluation Re-evalutation: 02/14/19 19:25 Discussed labs and ultrasound with patient and written report of labs and ultrasound given to patient to follow-up with her [employer]. Patient verbalized understanding and agreement with treatment plan. Patient does not need any antibiotics at this time she does need to take Tylenol for any discomfort and drink plenty of fluids. Patient verbalized understanding and agreement. - Vital Signs Vital signs: Temp Pulse Resp BP Pulse Ox 98.7 F 91 18 116/61 99 02/14/19 19:12 02/14/19 19:12 02/14/19 15:45 02/14/19 19:12 02/14/19 19:12 - Laboratory Laboratory results interpreted by me: 02/14/19 15:50 Ur Leukocyte Esterase MODERATE H - Diagnostic Test Radiology reviewed: Image reviewed, Reports reviewed Discharge - Discharge Clinical Impression: Vaginal discharge during in second trimester Condition: Stable Disposition: HOME, SELF-CARE Additional Instructions: Your urine did not show a urinary tract infection. Your gonorrhea and chlamydia test was negative I have discussed your ultrasound with you and given you a written report of your ultrasound. You are 22 weeks and 0 days your baby's heartbeat is 147 and you are due to deliver June 20, 2019. Please take these reports with you to your next [employer] appointment. Acetaminophen Acetaminophen may be taken for pain relief or fever control. It's much safer than aspirin, offering a wider range of "safe" dosages. It is safe during . Some brand names are Tylenol, Panadol, Datril, Anacin 3, Tempra, and Liquiprin. Acetaminophen can be repeated every four hours. The following are maximum recommended dosages: WEIGHT Dose Drops Elixir Chewable(80mg) (LBS.) drprs=droppers tsp=teaspoon 6 40 mg .4 ml (1/2) 6-11 80 mg .8 ml (full) 1/2 tsp 1 tab 12-16 120 mg 1 1/2 drprs 3/4 tsp 1 1/2 tabs 17-23 160 mg 2 drprs 1 tsp 2 tabs 24-30 240 mg 3 drprs 1 1/2 tsp 3 tabs 30-35 320 mg 2 tsp 4 tabs 36-41 360 mg 2 1/4 tsp 4 1/2 tabs 42-47 400 mg 2 1/2 tsp 5 tabs 48-53 480 mg 3 tsp 6 tabs 54-59 520 mg 3 1/4 tsp 6 1/2 tabs 60-64 560 mg 3 1/2 tsp 7 tabs 65-70 600 mg 3 3/4 tsp 7 1/2 tabs 71-76 640 mg 4 tsp 8 tabs 77-82 720 mg 4 1/2 tsp 9 tabs 83-88 800 mg 5 tsp 10 tabs >89 pounds or adults 650 mg to 900 mg Acetaminophen can be repeated every four hours. Maximum daily dose not to exceed 4000 mg. These maximum recommended dosages are slightly higher than the dosages written on the product container, but these dosages are very safe and well below the toxic dosage for acetaminophen. FOLLOW-UP CARE: If you have been referred to a physician for follow-up care, call the physicians office for an appointment as you were instructed or within the next two days. If you experience worsening or a significant change in your symptoms, notify the physician immediately or return to the Emergency Department at any time for re-evaluation. Referrals: [facility] [Provider Group] - Follow up as needed
[2019-02-14 16:33] LABS: APPEARANCE,URINE CLEAR; BILIRUBIN,URINE NEGATIVE (NEGATIVE); COLOR,URINE YELLOW; GLUCOSE, URINE NEGATIVE (NEGATIVE); KETONES,URINE NEGATIVE (NEGATIVE); LEUKOCYTE ESTERASE,URINE MODERATE (NEGATIVE); NITRITE,URINE NEGATIVE (NEGATIVE); PROTEIN,URINE NEGATIVE (NEGATIVE); URINE SPECIFIC GRAVITY 1.015; UROBILINOGEN,URINE NEGATIVE mg/dL (<2.0)
[2019-02-14 17:44] LABS: BACTERIA (WET MOUNT) 4+ BACTERIA SEEN; EPITHELIALS (WET MOUNT) 4+ EPITHELIALS SEEN; T.VAGINALIS (WET MOUNT) NO TRICHOMONAS SEEN; WBCS (WET MOUNT) 2+ WBCS SEEN; YEAST (WET MOUNT) NO YEAST SEEN
[2019-02-14 17:54] LABS: CHLAM PCR NOT DETECTED (NOT DETECT)
--- NOTE | 2019-02-14 18:54 | RADIOLOGY REPORT (SQ) ---
EXAM DESCRIPTION: U/S OB 14+ TRNABD 1GES W/O DOP COMPLETED DATE/TIME: 02/14/2019 6:41 pm REASON FOR STUDY: Pelvic pain COMPARISON: 11/01/2018 TECHNIQUE: Static and Dynamic grayscale imaging performed of gravid uterus using transabdominal appr oach. Additional selected color Doppler and spectral images recorded. All stored on PACS. LIMITATIONS: None. FINDINGS: FETUSES SEEN:1 EGA: 22 weeks 0 days Calculated using BPD,FL,HC,AC documented on images. No discrepancy with clinica l dates. YURI: 06/20/2019 EFW: 482+/- 71 grams PERCENTILE: 41st LVP: 3.2 x 5.6 cm PLACENTA: Anterior grade 1 PRESENTATION: Cephalic. ANATOMY: anatomical survey was not performed. MATERNAL ADNEXA: Maternal ovaries not visualized. CERVICAL LENGTH: 3 cm Closed. OTHER: heart rate 147 beats per minute. IMPRESSION: LIVING INTRAUTERINE . ESTIMATED GESTATIONAL AGE 22 weeks 0 days. Findings as described. Trimester of : Second trimester - 13 weeks 1 day to 27 weeks 6 days. TECHNICAL DOCUMENTATION: JOB ID: [id number] [employer]- All Rights Reserved Reading location - IP/workstation name: [email or web address]
[2019-02-14 19:23] VITALS: BP 116/61
== END 2019-02-14 19:15 | disposition home or self-care (01) ==
LOC: ER 14:49
DX: O26.892 Other specified pregnancy related conditions, second trimester (principal); N89.8 Other specified noninflammatory disorders of vagina; R30.9 Painful micturition, unspecified; R35.0 Frequency of micturition; R39.15 Urgency of urination; Z3A.22 22 weeks gestation of pregnancy
CPT/HCPCS: 76805; 81001; 87210; 87491; 87591; 99284

== ENCOUNTER 2019-03-02 02:09 | Emergency (ER) | payer MEDICAID ==
[2019-03-02 04:57] VITALS: BP 128/72
--- NOTE | 2019-03-02 05:41 | ER Document Report ---
ED Skin Rash/Insect Bite/Abscs - General Chief Complaint: Rash Stated Complaint: POSSIBLE RASH Time Seen by Provider: 03/02/19 04:41 Primary Care Provider: EBONY BURGESS MD [Primary Care Provider] - Follow up as needed TRAVEL OUTSIDE OF THE [place] IN LAST 30 DAYS: No - HPI Notes: 19-year-old female with a chief complaint of skin rash beneath both breasts present for several days and getting gradually worse. No regular medications. No known allergies. No history of diabetes. History of bipolar disorder. Last menses 2 weeks ago described as normal. - Related Data Allergies/Adverse Reactions: No Known Allergies Allergy (Verified 01/24/19 11:22) Past Medical History - General Information source: Patient - Social History Smoking Status: Former Smoker Family History: Reviewed & Not Pertinent Patient has suicidal ideation: No Patient has homicidal ideation: No Pulmonary Medical History: Reports: Hx Pneumonia Past Surgical History: Reports: Hx Orthopedic Surgery - Immunizations Immunizations up to date: Yes Hx Diphtheria, Pertussis, Tetanus Vaccination: Yes Review of Systems - Review of Systems Notes: Constitutional: Negative for fever. HENT: Negative for sore throat. Eyes: Negative for visual changes. Cardiovascular: Negative for chest pain. Respiratory: Negative for shortness of breath. Gastrointestinal: Negative for abdominal pain, vomiting or diarrhea. Genitourinary: Negative for dysuria. Musculoskeletal: Negative for back pain. Skin: As per HPI. Neurological: Negative for headaches, weakness or numbness. 10 point ROS negative except as marked above and in HPI. Physical Exam - Vital signs Vitals: Temp Pulse Resp BP Pulse Ox 98.1 F 91 16 126/59 H 98 03/02/19 02:13 03/02/19 02:13 03/02/19 02:13 03/02/19 02:13 03/02/19 02:13 - Notes Notes: GENERAL: Somewhat obese female approximately stated age appearing in no acute distress. SKIN: Intertrigo beneath both breasts. Patient has a very superficial cystic area of what looks like folliculitis developing on the left breast where she is scratched and excoriated the rash. HEAD: Normocephalic atraumatic. EYES: PERRLA. EOMI. Conjunctivae and sclerae clear. NECK: Supple. No masses or thyromegaly. No adenopathy. Carotids 2+ without bruits. No JVD. BACK: Symmetrical without tenderness. CHEST: Respirations unlabored. Breath sounds clear and symmetrical. HEART: Regular rhythm. No murmur gallop or rub. ABDOMEN: Obese. Soft nontender without masses, organomegaly or rebound. Bowel sounds normally active. No bruits. EXTREMITIES: No edema. No calf tenderness. Cap refill less than 1.5 seconds. Dorsalis pedis and posterior tibial pulses 3+ and symmetrical. NEUROLOGICAL: Alert and oriented x3. Nonfocal. PSYCHIATRIC: Appropriate affect. Course - Re-evaluation Re-evalutation: 03/02/19 05:38 I am going to prescribe some Lotrisone cream for topical application twice daily and suggest use of warm compresses. I am also going to put her on some Keflex orally. - Vital Signs Vital signs: Temp Pulse Resp BP Pulse Ox 98.2 F 88 16 128/72 H 100 03/02/19 04:56 03/02/19 04:56 03/02/19 04:56 03/02/19 04:56 03/02/19 04:56 Discharge - Discharge Clinical Impression: Monilial intertrigo Condition: Stable Disposition: HOME, SELF-CARE Additional Instructions: Wash the area of the rash with warm soap and water twice a day and then apply warm compress to the area of the small cyst adjacent to the left breast. Thereafter you need to try the area completely and apply the prescribed cream twice daily. Take prescribed oral medication as directed. Follow-up with referral clinic or your primary care doctor. Return here as needed for new or worsening symptoms: Pain that is worsening or unimproved Uncontrolled vomiting High fever or shaking chills Overall worsening Prescriptions: Cephalexin Monohydrate [Keflex 500 mg Capsule] 500 mg PO Q6H 10 Days #40 capsule Clotrimazole/Betamethasone Dip [Lotrisone Cream 15 gm] 30 applic EXT BID #1 tube Referrals: BEONY BURGESS MD [Primary Care Provider] - Follow up as needed
== END 2019-03-02 05:53 | disposition home or self-care (01) ==
LOC: ER 02:09
DX: L30.4 Erythema intertrigo (principal); R21 Rash and other nonspecific skin eruption; Z87.891 Personal history of nicotine dependence
CPT/HCPCS: 99282

== ENCOUNTER 2019-03-10 11:58 | Emergency (ER) | payer MEDICAID ==
--- NOTE | 2019-03-10 12:24 | ER Document Report ---
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 She reports the symptoms have resolved at this time. She also reports that yesterday when she was at work her vision went black and she felt like she was going to pass out but she did not. She denies fever vomiting diarrhea. Denies abdominal pain pain with void. I have greeted and performed a rapid initial assessment of this patient. A comprehensive ED assessment and evaluation of the patient, analysis of test results and completion of the medical decision making process will be conducted by additional ED providers. TRAVEL OUTSIDE OF THE [place] IN LAST 30 DAYS: No - Related Data Allergies/Adverse Reactions: No Known Allergies Allergy (Verified 03/10/19 12:16) Home Medications: doesnt take any daily medications Past Medical History - Social History Chew tobacco use (# tins/day): No Frequency of alcohol use: None Drug Abuse: None Pulmonary Medical History: Reports: Hx Pneumonia Past Surgical History: Reports: Hx Orthopedic Surgery - Immunizations Immunizations up to date: Yes Hx Diphtheria, Pertussis, Tetanus Vaccination: Yes Physical Exam - Vital signs Vitals: Temp Pulse Resp BP Pulse Ox 98.1 F 97 16 122/50 L 100 03/10/19 12:15 03/10/19 12:15 03/10/19 12:15 03/10/19 12:15 03/10/19 12:15 Course - Vital Signs Vital signs: Temp Pulse Resp BP Pulse Ox 98.1 F 97 16 122/50 L 100 03/10/19 12:15 03/10/19 12:15 03/10/19 12:15 03/10/19 12:15 03/10/19 12:15 Doctor's Discharge - Discharge Referrals: EBONY BURGESS MD [Primary Care Provider] - Follow up as needed
[2019-03-10 12:51] LABS: ABSOLUTE LYMPHOCYTES (AUTO) 1.9 10^3/uL (0.5-4.7); ABSOLUTE MONOCYTES (AUTO) 0.7 10^3/uL (0.1-1.4); ABSOLUTE NEUT (AUTO) 9.4 10^3/uL (1.7-8.2); BASOPHILS % (AUTO) 0.2 % (0-2); EOSINOPHILS % (AUTO) 0.3 % (0-6); HEMOGLOBIN 10.6 g/dL (12.0-15.5); LYMPHOCYTES % (AUTO) 16.1 % (13-45); MEAN CORPUSCULAR HEMOGLOBIN 25.7 pg (27.0-33.4); MEAN CORPUSCULAR HGB CONC 33.1 g/dL (32.0-36.0); MEAN CORPUSCULAR VOLUME 78 fl (80-97); MONOCYTES % (AUTO) 5.6 % (3-13); PLATELET COUNT 326 10^3/uL (150-450); RED BLOOD COUNT 4.12 10^6/uL (3.72-5.28); RED CELL DISTRIBUTION WIDTH 14.3 % (11.5-14.0); SEGMENTED NEUTROPHILS % (AUTO) 77.8 % (42-78); TOTAL CELLS COUNTED % (AUTO) 100 %
[2019-03-10 12:58] LABS: APPEARANCE,URINE CLEAR; BILIRUBIN,URINE NEGATIVE (NEGATIVE); COLOR,URINE STRAW; GLUCOSE, URINE NEGATIVE (NEGATIVE); KETONES,URINE NEGATIVE (NEGATIVE); LEUKOCYTE ESTERASE,URINE MODERATE (NEGATIVE); NITRITE,URINE NEGATIVE (NEGATIVE); PROTEIN,URINE NEGATIVE (NEGATIVE); URINE SPECIFIC GRAVITY 1.002; UROBILINOGEN,URINE NEGATIVE mg/dL (<2.0)
[2019-03-10 13:08] LABS: ALBUMIN 3.5 g/dL (3.5-5.0); ALKALINE PHOSPHATASE 85 U/L (38-126); ANION GAP 8 (5-19); ASPARTATE AMINO TRANSFERASE 13 U/L (14-36); BILIRUBIN,TOTAL 0.2 mg/dL (0.2-1.3); BLOOD UREA NITROGEN 4 mg/dL (7-20); CARBON DIOXIDE 23 mmol/L (22-30); CHLORIDE 104 mmol/L (98-107); GLUCOSE 83 mg/dL (75-110); POTASSIUM 3.6 mmol/L (3.6-5.0); TOTAL PROTEIN 6.9 g/dL (6.3-8.2)
--- NOTE | 2019-03-10 15:16 | ER Document Report ---
ED General - General Chief Complaint: Numbness of Arm Stated Complaint: LEFT ARM NUMBNESS Time Seen by Provider: 03/10/19 12:18 Primary Care Provider: EBONY BURGESS MD [ACTIVE STAFF] - Follow up in 3-5 days Mode of Arrival: Ambulatory Notes: Patient is a 19-year-old female, G2, P0, 5 months who presents emergency department with left arm numbness. She ended up having it this mo rning. She states that it felt like [id number]. It has gone away. She denies any other symptoms. 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 Denies any new facial droop. TRAVEL OUTSIDE OF THE [place] IN LAST 30 DAYS: No - Related Data Allergies/Adverse Reactions: No Known Allergies Allergy (Verified 03/10/19 12:16) Home Medications: doesnt take any daily medications Past Medical History - General Information source: Patient - Social History Smoking Status: Current Every Day Smoker Chew tobacco use (# tins/day): No Frequency of alcohol use: None Drug Abuse: None Family History: Reviewed & Not Pertinent Patient has suicidal ideation: No Patient has homicidal ideation: No Pulmonary Medical History: Reports: Hx Pneumonia Past Surgical History: Reports: Hx Orthopedic Surgery - Immunizations Immunizations up to date: Yes Hx Diphtheria, Pertussis, Tetanus Vaccination: Yes Review of Systems - Review of Systems Notes: REVIEW OF SYSTEMS: CONSTITUTIONAL : Denies recent illness. Denies recent unintentional weight loss. Denies fever, chills, or sweats. EENT: Denies eye, ear, throat, or mouth pain, discharge, or symptoms. Denies nasal or sinus congestion. CARDIOVASCULAR: Denies chest pain. RESPIRATORY: Denies shortness of breath, cough, congestion, difficulty b reathing, or wheezing. GASTROINTESTINAL: Denies nausea, vomiting, and diarrhea. Denies abdominal pain. Denies constipation. GENITOURINARY: Denies difficulty urinating, burning, blood in urine, urgency or frequency. MUSCULOSKELETAL: Denies neck and back pain. Denies joint pain or swelling. SKIN: Denies rash, itchiness, or lesions HEMATOLOGIC : Denies easy bruising or bleeding. LYMPHATIC: Denies swollen, painful, enlarged glands. NEUROLOGICAL: See HPI. Denies headache. Denies altered mental status. Denies alteration in speech. PSYCHIATRIC: Denies stress, anxiety, alteration in sleep patterns, or depression. All other systems reviewed and negative. Physical Exam - Vital signs Vitals: Temp Pulse Resp BP Pulse Ox 98.1 F 97 16 122/50 L 100 03/10/19 12:15 03/10/19 12:15 03/10/19 12:15 03/10/19 12:15 03/10/19 12:15 - Notes Notes: PHYSICAL EXAMINATION: GENERAL: Appears well, healthy, well-nourished, no acute distress. HEAD: Normocephalic, atraumatic. EYES: PERRL, conjunctiva normal, all extraocular movements intact, sclera nonicteric ENT: Moist mucous membranes. NECK: Supple, no noticeable swelling, redness, rash. Normal range of motion. LUNGS: Equal breath sounds bilaterally and clear to auscultation. No wheezes rales or rhonchi. CARDIOVASCULAR: S1-S2, regular rate, regular rhythm. Radial pulses 2+, normal. ABDOMEN: Normoactive bowel sounds. Soft, nontender, no guarding, no rebound tenderness, and no masses palpated. Noticeably 5 months . EXTREMITIES: Normal strength and range of motion, no pitting or edema. No cyanosis. NEUROLOGICAL: Moves all extremities upon command. Strength 5/5 in all extremit ies. PSYCH: Normal mood, normal affect. SKIN: Warm, dry. No rash, lesions, ulcerations noted. Normal skin turgor. Course - Re-evaluation Re-evalutation: 03/10/19 15:21 Patient's hematology shows a leukocytosis of 12,000. She is also anemic at 10.6, but this is most likely due to her . Chemistries are unremarkable. Urinalysis shows a moderate amount of leukocytes with no hematic area. Patient will be started on Keflex and will receive a dose of Rocephin here in the emergency department. 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 I do not suspect new Guardado's palsy. Follow-up precautions were given. Verbal discharge instructions were given to the patient. They verbalized understanding. They are stable for discharge. - Vital Signs Vital signs: Temp Pulse Resp BP Pulse Ox 97.9 F 91 18 104/56 L 100 03/10/19 15:55 03/10/19 15:55 03/10/19 15:55 03/10/19 15:55 03/10/19 15:55 - Laboratory Result Diagrams: 03/10/19 12:38 03/10/19 12:38 Laboratory results interpreted by me: 03/10/19 03/10/19 03/10/19 12:38 12:38 12:38 WBC 12.0 H Hgb 10.6 L Hct 32.0 L MCV 78 L MCH 25.7 L RDW 14.3 H Absolute Neuts (auto) 9.4 H Sodium 135.4 L BUN 4 L Creatinine 0.36 L AST 13 L Ur Leukocyte Esterase MODERATE H Discharge - Discharge Clinical Impression: Urinary tract infection Qualifiers: Urinary tract infection type: acute cystitis Hematuria presence: without hematuria Qualified Code(s): N30.00 - Acute cystitis without hematuria Condition: Stable Disposition: HOME, SELF-CARE Instructions: Cephalexin ([facility]), Urinary Tract Infection ([facility]) Additional Instructions: Your urine shows findings consistent with a urinary tract infection. Please take all the antibiotics as directed even if your symptoms have improved. Please follow-up with your OBGYN as needed. Return to emergency room if you develop fever >101F, persistent vomiting, become lethargic, have severe pain in your sides, or any other symptoms that are concerning to you. Prescriptions: Cephalexin [Keflex] 500 mg PO BID #14 capsule Forms: Return to Work Referrals: EBONY BURGESS MD [ACTIVE STAFF] - Follow up in 3-5 days
[2019-03-10] MEDS ORDERED: CEFTRIAXONE INJ 1000 MG VIAL IM ONE (15:20)
[2019-03-10] MEDS ORDERED: LIDOCAINE 1% INJ-PF (10 MG/ML) 30 ML SDV INJ ONE (15:20)
[2019-03-10 16:07] VITALS: BP 104/56
== END 2019-03-10 16:07 | disposition home or self-care (01) ==
LOC: ER 11:58
DX: O23.12 Infections of bladder in pregnancy, second trimester (principal); N30.00 Acute cystitis without hematuria; O26.892 Other specified pregnancy related conditions, second trimester; R20.0 Anesthesia of skin; O99.012 Anemia complicating pregnancy, second trimester; O99.332 Smoking (tobacco) complicating pregnancy, second trimester; Z3A.20 20 weeks gestation of pregnancy
CPT/HCPCS: 99284; 96372; 36415; 85025; 80053; 81001; J3490; J0696

== ENCOUNTER 2019-04-07 20:52 | Outpatient (CLI) | payer MEDICAID ==
[2019-04-07 21:59] LABS: APPEARANCE,URINE SLIGHTLY-CLOUDY; BILIRUBIN,URINE NEGATIVE (NEGATIVE); COLOR,URINE YELLOW; GLUCOSE, URINE NEGATIVE (NEGATIVE); KETONES,URINE NEGATIVE (NEGATIVE); LEUKOCYTE ESTERASE,URINE NEGATIVE (NEGATIVE); NITRITE,URINE NEGATIVE (NEGATIVE); PROTEIN,URINE NEGATIVE (NEGATIVE); URINE SPECIFIC GRAVITY 1.017; UROBILINOGEN,URINE NEGATIVE mg/dL (<2.0)
[2019-04-07 22:02] LABS: URINE AMPHETAMINES SCREEN NEGATIVE; URINE BARBITURATES SCREEN NEGATIVE; URINE BENZODIAZEPINES SCREEN NEGATIVE; URINE COCAINE SCREEN NEGATIVE; URINE METHADONE SCREEN NEGATIVE; URINE PHENCYCLIDINE SCREEN NEGATIVE
[2019-04-07 22:11] LABS: URINE MARIJUANA (THC) SCREEN UNCONFIRMED POSITIVE
--- NOTE | 2019-04-07 23:10 | RADIOLOGY REPORT (SQ) ---
Obstetric ultrasound: 04/07/2019 10:07 PM TESTER OPERATOR HELPER HISTORY: 19-year-old female with and vaginal bleeding. TECHNIQUE: Multiple grayscale and color Doppler images of the pelvis were obtained transabdominally. COMPARISON: None available for this . FINDINGS: A single intrauterine gestation is seen, which is cephalic in position. The cervix measures at least 3.3 cm in length. The placenta is anterior in location, and free of internal os of the cervix. The estimated heart rate is approximately 150 bpm. The fetus measures at 29 weeks and three days by prior measurements with an estimated due date of 06/20/2019. The [place]IA [place] measures 9.7 cm, with the deepest vertical pocket of approximately 4.3 cm. IMPRESSION: A single, live intrauterine gestation is seen which is currently cephalic in position. The [place] is within normal limits. The cervix measures at least 3.3 cm in length. Interval follow-up with an obstetric care provider is recommended.
== END 2019-04-07 23:35 | disposition home or self-care (01) ==
LOC: LC 20:52
PROVIDERS: ATTEND Obstetrics & Gynecology
PROC: 4A1HXCZ Monitoring of Products of Conception, Cardiac Rate, External Approach (ICD-10-PCS; principal; 2019-04-07)
DX: O47.03 False labor before 37 completed weeks of gestation, third trimester (principal); O46.93 Antepartum hemorrhage, unspecified, third trimester; O99.333 Smoking (tobacco) complicating pregnancy, third trimester; F17.210 Nicotine dependence, cigarettes, uncomplicated; O99.323 Drug use complicating pregnancy, third trimester; F12.90 Cannabis use, unspecified, uncomplicated; Z3A.29 29 weeks gestation of pregnancy
CPT/HCPCS: 59899; 81001; 80307; 76815; G0480 ×2; 80349

== ENCOUNTER 2019-06-17 22:43 | Outpatient (CLI) | payer MEDICAID ==
[2019-06-17 23:11] LABS: APPEARANCE,URINE CLOUDY; BILIRUBIN,URINE NEGATIVE (NEGATIVE); COLOR,URINE YELLOW; GLUCOSE, URINE NEGATIVE (NEGATIVE); KETONES,URINE NEGATIVE (NEGATIVE); LEUKOCYTE ESTERASE,URINE LARGE (NEGATIVE); NITRITE,URINE NEGATIVE (NEGATIVE); PROTEIN,URINE NEGATIVE (NEGATIVE); URINE SPECIFIC GRAVITY 1.024
[2019-06-17 23:26] LABS: URINE AMPHETAMINES SCREEN NEGATIVE; URINE BARBITURATES SCREEN NEGATIVE; URINE BENZODIAZEPINES SCREEN NEGATIVE; URINE COCAINE SCREEN NEGATIVE; URINE METHADONE SCREEN NEGATIVE; URINE PHENCYCLIDINE SCREEN NEGATIVE
[2019-06-17 23:28] LABS: URINE MARIJUANA (THC) SCREEN UNCONFIRMED POSITIVE
[2019-06-17] MEDS ORDERED: RINGERS SOLUTION,LACTATED 1,000 ML IV ONE (23:59)
[2019-06-17] MEDS ORDERED: CEFTRIAXONE INJ 250 MG VIAL IV ONE (23:59)
[2019-06-18] MEDS ORDERED: CEFTRIAXONE INJ 1000 MG VIAL ONE (00:03)
== END 2019-06-18 01:25 | disposition home or self-care (01) ==
LOC: LC 22:43
PROVIDERS: ATTEND Obstetrics & Gynecology
DX: O47.1 False labor at or after 37 completed weeks of gestation (principal); O99.283 Endocrine, nutritional and metabolic diseases complicating pregnancy, third trimester; E86.0 Dehydration; F17.210 Nicotine dependence, cigarettes, uncomplicated; Z3A.39 39 weeks gestation of pregnancy
CPT/HCPCS: 59025; 81005; 80307; J0696

== ENCOUNTER 2019-06-19 14:23 | Outpatient (CLI) | payer MEDICAID ==
--- NOTE | 2019-06-19 14:29 | Non Stress Test Report ---
Non Stress Test Datetime Report Generated by CPN: 06/19/2019 14:29 DEMOGRAPHIC EGA NST: 39.4 INDICATION Indication for Study (NST) Other: gestational age > 32 weeks VITAL SIGNS Temperature - NST: 98.3 Pulse - NST: 73 RESP - NST: 17 NBPSYS NST: 117 NBPDIA NST: 64 MONITORING Monitor Explained: Monitor Explained; Test Explained; Patient Verbalized Understanding Time on Monitor: 06/17/2019 23:35 Time off Monitor: 06/18/2019 01:13 NST Duration: 98 NST INTERVENTIONS NST Interventions: PO Hydration; IV Fluids; Reposition Patient Physician Notified NST: Dr. Jaswant BABY A: [id number] BABY A Movement : Present Contraction Frequency : 3.5-5 FHR Baseline : 135 Accelerations : 15X15 Decelerations : None Variability : Moderate 6-25bpm NST Review: Meets Criteria for Reactive NST NST Review and Verified By : Charis Stanley RN NST Results: Reactive NST REPORT Report Trigger: Send Report
[2019-06-19 15:08] LABS: APPEARANCE,URINE SLIGHTLY-CLOUDY; BILIRUBIN,URINE NEGATIVE (NEGATIVE); COLOR,URINE YELLOW; GLUCOSE, URINE NEGATIVE (NEGATIVE)
[2019-06-19 15:10] LABS: KETONES,URINE 25 mg/dL (NEGATIVE); LEUKOCYTE ESTERASE,URINE SMALL (NEGATIVE); NITRITE,URINE NEGATIVE (NEGATIVE); PROTEIN,URINE NEGATIVE (NEGATIVE); URINE SPECIFIC GRAVITY 1.017; UROBILINOGEN,URINE NEGATIVE mg/dL (<2.0)
[2019-06-19 15:26] LABS: URINE AMPHETAMINES SCREEN NEGATIVE; URINE BARBITURATES SCREEN NEGATIVE; URINE BENZODIAZEPINES SCREEN NEGATIVE; URINE COCAINE SCREEN NEGATIVE; URINE METHADONE SCREEN NEGATIVE; URINE PHENCYCLIDINE SCREEN NEGATIVE
[2019-06-19 15:27] LABS: URINE MARIJUANA (THC) SCREEN UNCONFIRMED POSITIVE
--- NOTE | 2019-06-19 17:13 | Non Stress Test Report ---
Non Stress Test Datetime Report Generated by CPN: 06/19/2019 17:12 DEMOGRAPHIC EGA NST: 39.6 INDICATION Indication for Study (NST) Other: LABOR CHECK VITAL SIGNS Temperature - NST: 98.3 Pulse - NST: 78 RESP - NST: 18 NBPSYS NST: 100 NBPDIA NST: 59 MONITORING Monitor Explained: Monitor Explained; Test Explained; Patient Verbalized Understanding Time on Monitor: 06/19/2019 14:56 Time off Monitor: 06/19/2019 16:07 NST Duration: 71 NST INTERVENTIONS NST Interventions: PO Hydration; Reposition Patient BABY A Movement : Present Contraction Frequency : 2-5 FHR Baseline : 135 Accelerations : 15X15 Decelerations : None Variability : Moderate 6-25bpm NST Review: Meets Criteria for Reactive NST NST Review and Verified By : Kristina DAWKINST Results: Reactive NST REPORT Report Trigger: Send Report
== END 2019-06-19 17:03 | disposition home or self-care (01) ==
LOC: LC 14:23
PROVIDERS: ATTEND Obstetrics & Gynecology
DX: Z34.93 Encounter for supervision of normal pregnancy, unspecified, third trimester (principal)
CPT/HCPCS: 59025; 81005; 80307; 84112; G0480 ×2; 80349

== ENCOUNTER 2019-06-20 01:18 | Inpatient (IN) | payer MEDICAID ==
[2019-06-20] MEDS ORDERED: ACETAMINOPHEN 325 MG TABLET ONE (01:36)
[2019-06-20] MEDS ORDERED: ACETAMINOPHEN 325 MG TABLET PO ONE (01:36)
[2019-06-20 01:57] LABS: APPEARANCE,URINE CLEAR; BILIRUBIN,URINE NEGATIVE (NEGATIVE); COLOR,URINE YELLOW; GLUCOSE, URINE NEGATIVE (NEGATIVE); KETONES,URINE NEGATIVE (NEGATIVE); LEUKOCYTE ESTERASE,URINE NEGATIVE (NEGATIVE); NITRITE,URINE NEGATIVE (NEGATIVE); PROTEIN,URINE NEGATIVE (NEGATIVE); URINE SPECIFIC GRAVITY 1.023
[2019-06-20 02:14] LABS: URINE AMPHETAMINES SCREEN NEGATIVE; URINE BARBITURATES SCREEN NEGATIVE; URINE BENZODIAZEPINES SCREEN NEGATIVE; URINE COCAINE SCREEN NEGATIVE; URINE METHADONE SCREEN NEGATIVE; URINE PHENCYCLIDINE SCREEN NEGATIVE
[2019-06-20 02:18] LABS: URINE MARIJUANA (THC) SCREEN UNCONFIRMED POSITIVE
[2019-06-20] MEDS ORDERED: PROMETHAZINE HCL INJ 25 MG/1 ML VIAL ONE (02:48)
[2019-06-20] MEDS ORDERED: NALBUPHINE HCL INJ 10 MG/1 ML AMPULE ONE (02:48)
[2019-06-20] MEDS ORDERED: OXYTOCIN/0.9 % SODIUM CHLORIDE 30 UNIT/500 ML RTUINJ ONE (03:00)
[2019-06-20] MEDS ORDERED: OXYTOCIN 10 UNIT/ML VIAL ONE (03:00)
[2019-06-20] MEDS ORDERED: LIDOCAINE 1% INJ-PF (10 MG/ML) 30 ML SDV ONE (03:00)
[2019-06-20] MEDS ORDERED: MISOPROSTOL 0.2 MG TABLET ONE (03:00)
[2019-06-20] MEDS ORDERED: PENICILLIN G-K 5 MILLION UNIT VIAL ONE (03:04)
[2019-06-20] MEDS ORDERED: NALBUPHINE HCL INJ 10 MG/1 ML AMPULE IM ONE (03:15)
[2019-06-20] MEDS ORDERED: PROMETHAZINE HCL INJ 25 MG/1 ML VIAL IV ONE (03:15)
[2019-06-20] MEDS ORDERED: NALBUPHINE HCL INJ 10 MG/1 ML AMPULE IV ONE (03:15)
--- NOTE | 2019-06-20 03:16 | Admission Physical ---
Datetime Report Generated by CPN: 06/20/2019 03:15 CURRENT ADMISSION Chief Complaint: Uterine Contractions Indication for Induction: Not Applicable Admit Impression : Term, Intrauterine ; Active Labor Admit Plan: Admit to Unit; Initiate Labor Protocol ALLERGIES Medication Allergies: Yes Medication Allergies: letrozole (06/20/2019) Latex: No Latex Allergies OBSTETRICAL HISTORY EDC: 06/20/2019 00:00 : 2 Para: 0 Term: 0 : 0 SAB: 0 IAB: 0 Ectopic: 0 Livin Cesareans: 0 VBACs: 0 Multiple Births: 0 Gestational Diabetes: No Rh Sensitization: No Incompetent Cervix: No WALI: No Infertility: No ART Treatment: No Uterine Anomaly: No IUGR: No Hx Previous C/S: No Macrosomia: No Hx Loss/Stillborn: No PIH: No Hx : No Placenta Previa/Abruption: No Depression/PP Depression: No PTL/PROM: No Post Hemorrhage: No Current Procedures: Ultrasound Obstetrical History Comments: G1: SAB June 2018 _6 weeks, no complications G2: current SEE RECORDS Alcohol: No Marijuana : Yes Marijuana Frequency: Occasional Last Used: 04/07/2019 00:00 Previous Treatment: None Marijuana Comments: Pt admits that she smokes marijuana to be able to eat. 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 Pt states she smoked meth everyday from 11/2017 to 05/2018. Pt states she stopped smoking on her own. Cigarettes: Current Everyday Smoker. 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 Has had bladder and kidney "problems" her whole life. Reocurring UTIs. Mcfarland palsy when she is stressed. Anxiety, depression, bipolar, ADHD. MRSA 6 years ago INFECTIOUS HISTORY Gonorrhea: Yes Genital Herpes: Yes Chlamydia: Yes Tuberculosis: Yes Syphilis: No Hepatitis: Unknown HIV/AIDS Exposure: No Rash or Viral Illness: No HPV: Yes Infectious History Comments: Gonorrhea, chlamydia, HPV in 2016. HSV 1 and 2 positive. Tuberculosis exposure 02/2018. PHYSICAL EXAM General: Normal HEENT: Normal Neurologic: Normal Thyroid: Normal Heart: Normal Lungs: Normal Breast: Normal Back: Normal Abdomen: Normal Genitourinary Exam: Normal Extremities: Normal DTRs: Normal Pelvic Type: Adequate Vital Signs: Reviewed; Within Normal Limits VAGINAL EXAM Dilatation: 3 Effacement: 90 Station: -1 MEMBRANES Pooling: Negative Membranes: Intact FETUS A EGA: 40.0 Monitoring: External US FHR- Baseline: 130 Variability: Moderate 6-25bpm Accelerations: 15X15 Decelerations: None FHR Category: Category I Estimated Weight (gm): 3500 Presentation: Vertex PLANS FOR LABOR AND DELIVERY Labor and Delivery: None Pain Management: Epidural Other Pain Management Plans: undecided Feeding Preference: Breast Benefit of Breast Feed Discussed: Yes INFORMED CONSENT Signature: with User ID: [email or web address]
[2019-06-20] MEDS ORDERED: MEASLES,MUMPS&RUBELLA VACC/PF 0.5 ML VIAL SUBCUT PRN (03:19)
[2019-06-20] MEDS ORDERED: PROMETHAZINE HCL INJ 25 MG/1 ML VIAL IV PRN (03:19)
[2019-06-20] MEDS ORDERED: NA PHOS,M-B/NA PHOS,DI-BA (ADULT) 133 ML ENEMA PR PRN (03:19)
[2019-06-20] MEDS ORDERED: DIPHENHYDRAMINE HCL 25 MG CAPSULE PO PRN (03:19)
[2019-06-20] MEDS ORDERED: PROMETHAZINE HCL 25 MG TABLET PO PRN (03:19)
[2019-06-20] MEDS ORDERED: PROMETHAZINE HCL 25 MG SUPP.RECT PR PRN (03:19)
[2019-06-20] MEDS ORDERED: ACETAMINOPHEN 650 MG SUPP.RECT PR PRN (03:19)
[2019-06-20] MEDS ORDERED: PSEUDOEPHEDRINE HCL 30 MG TABLET PO PRN (03:19)
[2019-06-20] MEDS ORDERED: OXYTOCIN/0.9 % SODIUM CHLORIDE 30 UNIT/500 ML RTUINJ IV PRN (03:19)
[2019-06-20] MEDS ORDERED: ACETAMINOPHEN 325 MG TABLET PO PRN (03:19)
[2019-06-20] MEDS ORDERED: ZOLPIDEM TARTRATE 5 MG TABLET PO PRN (03:19)
[2019-06-20] MEDS ORDERED: MAGNESIUM HYDROXIDE SUSP 30 ML UDCUP PO PRN (03:19)
[2019-06-20] MEDS ORDERED: BENZOCAINE/MENTHOL AEROSOL SPRAY 56 ML TOP PRN (03:19)
[2019-06-20] MEDS ORDERED: DIPH/PERTUSS(ACELL)/TETANUS VAC/PF 0.5 ML SYR (>=10YO) IM PRN (03:19)
[2019-06-20] MEDS ORDERED: DIBUCAINE 1% OINTMENT 28 GM TP PRN (03:19)
[2019-06-20] MEDS ORDERED: ACETAMINOPHEN WITH CODEINE #3 TABLET PO PRN (03:19)
[2019-06-20] MEDS ORDERED: GLYCERIN/WITCH HAZEL LEAF 1 EACH MED..WIPE TP PRN (03:19)
[2019-06-20] MEDS ORDERED: IBUPROFEN 800 MG TABLET ONE (03:36)
[2019-06-20 03:38] LABS: ABSOLUTE BASOPHILS # (AUTO) 0.1 10^3/uL (0.0-0.2); ABSOLUTE LYMPHOCYTES (AUTO) 1.6 10^3/uL (0.5-4.7); ABSOLUTE MONOCYTES (AUTO) 0.4 10^3/uL (0.1-1.4); ABSOLUTE NEUT (AUTO) 11.2 10^3/uL (1.7-8.2); BASOPHILS % (AUTO) 0.5 % (0-2); EOSINOPHILS % (AUTO) 0.1 % (0-6); HEMATOCRIT 35.2 % (36.0-47.0); HEMOGLOBIN 11.5 g/dL (12.0-15.5); LYMPHOCYTES % (AUTO) 12.3 % (13-45); MEAN CORPUSCULAR HEMOGLOBIN 25.5 pg (27.0-33.4); MEAN CORPUSCULAR HGB CONC 32.8 g/dL (32.0-36.0); MEAN CORPUSCULAR VOLUME 78 fl (80-97); MONOCYTES % (AUTO) 3.2 % (3-13); PLATELET COUNT 299 10^3/uL (150-450); RED BLOOD COUNT 4.54 10^6/uL (3.72-5.28); RED CELL DISTRIBUTION WIDTH 17.3 % (11.5-14.0); SEGMENTED NEUTROPHILS % (AUTO) 83.9 % (42-78); TOTAL CELLS COUNTED % (AUTO) 100 %; WHITE BLOOD COUNT 13.3 10^3/uL (4.0-10.5)
--- NOTE | 2019-06-20 04:01 | Delivery Summary ---
Del Sum A-C Datetime Report Generated by CPN: 06/20/2019 04:00 DELIVERY PERSONNEL DELIVERY PERSONNEL: [id number] Delivery Doctor:: Barb Michaud MD Labor and Delivery Nurse:: Lashae Peña RNhairspring vibrator Nurse:: Kat Barbosa, RNC Paint [employer]/TRIM ATTACHER: Yamini Guevara, ST Additional Personnel: : Wendi Cheema, RN MATERNAL INFORMATION Delivery Anesthesia: None Medications After Delivery: Pitocin 30 Units in 500ml NS/D5W Estimated Blood Loss (ml): 200 Maternal Complications: Precipitous Labor (<3hrs) LABOR SUMMARY EDC: 06/20/2019 00:00 No. Babies in Womb: 1 Attempted: No Labor Anesthesia: None LABOR INFORMATION Reason for Induction: Not Applicable Onset of Labor: 06/20/2019 02:00 Complete Dilatation: 06/20/2019 03:00 Oxytocin: N/A Group B Beta Strep: positive Antibiotics # of Doses: 0 Antibiotics Time of Last Dose: 0 Name of Antibiotic Given: 0 Steroids Given: None Reason Steroids Not Administered: Not Applicable MEMBRANES Membranes Rupture Method: Artificial Rupture of Membranes: 06/20/2019 02:55 Length of Rupture (hr): 0.18 Amniotic Fluid Color: Moderate Meconium Amniotic Fluid Amount: Small Amniotic Fluid Odor: None STAGES OF LABOR Stage 1 hr: 1 Stage 1 min: 0 Stage 2 hr: 0 Stage 2 min: 6 Stage 3 hr: 0 Stage 3 min: 4 Total Time in Labor hr: 1 Total Time in Labor min: 10 VAGINAL DELIVERY Episiotomy: None Laceration #1: None Laceration Extension #1: N/A Laceration Repair: Not Applicable Laceration Repair Note: delivered within 5 min Sponge Count Correct: N/A CSECTION DELIVERY Primary Indication: N/A Secondary Indication: N/A CSection Incidence: N/A Labor: N/A Elective: N/A CSection Incision: N/A BABY A INFORMATION Delivery Date/Time: 06/20/2019 03:06 Method of Delivery: Vaginal Nurse Controlled Delivery: No Born in Route : No : N/A Forceps: N/A Vacuum Extraction: N/A Shoulder Dystocia : No PRESENTATION/POSITION BABY A Presentation: Cephalic Cephalic Presentation: Vertex Vertex Position: Left Occipital Anterior Breech Presentation: N/A PLACENTA INFORMATION BABY A Placenta Delivery Time : 06/20/2019 03:10 Placenta Method of Delivery: Spontaneous Placenta Status: Delivered SCORES BABY A Heart Rate 1 min: >100 bpm Resp Effort 1 min: Good Cry Reflex Irritability 1 min: Cough or Sneeze or Pulls Away Muscle Tone 1 min: Active Motion Color 1 min: Blue/Pale Resuscitation Effort 1 min: Tactile Stimulation SCORE 1 MIN: 8 Heart Rate 5 min: >100 bpm Resp Effort 5 min: Good Cry Reflex Irritability 5 min: Cough or Sneeze or Pulls Away Muscle Tone 5 min: Active Motion Color 5 min: Body [place], Extremities Blue Resuscitation Effort 5 min: Tactile Stimulation SCORE 5 MIN: 9 INFANT INFORMATION BABY A Gestational Age at Delivery: 40.0 Gestational Status: Full Term- 39- 40.6 Weeks Outcome : Liveborn Condition : Stable Sex: Female IDENTIFICATION BABY A Verification Date/Time: 06/20/2019 03:24 ID Band Number: [id number] Mother's Name Verified: Yes Infant RN Verifying Infant: Belen Peña RN /D Bellavaprincee RN WEIGHT/LENGTH BABY A Infant Birthweight (gm): 3132 Weight (lb): 6 Weight (oz): 14 Infant Length (in): 19.25 Length (cm): 48.90 CORD INFORMATION BABY A No. Cord Vessels: 3 Nuchal Cord : N/A Cord Blood Taken: Yes-For Storage (Mom's Blood type +) Suction: Mouth; Nose ASSESSMENT BABY A Physical Findings at Delivery: Molding of the Head Respirations: Appears Normal Skin to Skin: Yes Skin to Skin Time (min): 30 Consultant Dietitian/ALS Called : No Infant Care By: Park Gross RN Transferred To: Remains with Mother BABY B INFORMATION : N/A SIGNATURES Signature: with User ID: [email or web address]
--- NOTE | 2019-06-20 04:48 | Warning Signs in Babies ---
VOD Warning Signs Datetime Report Generated by [facility]: 06/20/2019 04:47 VOD#[id number] -Warning Signs in Babies: Viewed with Parent(s)/Family (06/20/2019 04:30:Lashae Peña RN)
--- NOTE | 2019-06-20 04:54 | Warning Signs in Babies ---
VOD Warning Signs Datetime Report Generated by [facility]: 06/20/2019 04:54 VOD#[id number] -Warning Signs in Babies: Viewed with Parent(s)/Family (06/20/2019 04:45:Lashae Peña RN)
[2019-06-20] MEDS ORDERED: IBUPROFEN 800 MG TABLET PO SCH (06:00)
[2019-06-20] MEDS: FAMOTIDINE 20 MG TABLET PO SCH ×2 (10:00→22:00)
[2019-06-20] MEDS: FERROUS SULFATE 325 MG TABLET PO SCH ×2 (10:00→16:59)
[2019-06-20] MEDS: DOCUSATE SODIUM 100 MG CAPSULE PO SCH ×2 (10:00→16:59)
[2019-06-20] MEDS: IBUPROFEN 800 MG TABLET PO SCH ×2 (10:01→17:21)
[2019-06-20] MEDS: SENNOSIDES/DOCUSATE 8.6-50 MG 1 EACH TABLET PO SCH (10:01)
[2019-06-20] MEDS: PRENATAL VITAMIN W DHA CAPSULE PO SCH (10:01)
--- NOTE | 2019-06-20 13:05 | PDOC PROGRESS REPORT ---
Subjective-OB Progress Note for:: 06/20/19 Subjective: 39yo G2 now P1 s/p s/p delivery day. Pt reports pain well controlled with medication no concerns today, voiding without difficulty Physical Exam (OB) Vital Signs: Temp Pulse Resp BP Pulse Ox 98.1 F 64 18 101/53 L 99 06/20/19 07:39 06/20/19 07:39 06/20/19 07:39 06/20/19 07:39 06/20/19 07:39 Intake & Output 06/19/19 06/20/19 06/21/19 06:59 06:59 06:59 Intake Total 480 Output Total 120 Balance 480 -120 Weight 100 kg - General General Appearance: Appears well In distress: None - PIH/Pre-Eclampsia DTR's: 1 + Clonus: Negative Headache: Absent Epigastric Pain: No Visual Changes: No - Episiotomy/Laceration Site Condition: N/A - Lochia Lochia Amount: Scant < 10 ml Lochia Color: Rubra/Red - Abdomen Description: Soft, Round Hernia Present: No Fundal Description: Firm, Midline Fundal Height: u/u - u/2 - Respiratory Respiratory Status: No respiratory distress - Extremities Upper extremity: Normal inspection Lower extremities: Normal inspection - Neurological Cognition: Normal Orientation: AAOx4 - Psychological Associated symptoms: Normal affect, Normal mood Objective-Diagnostic Laboratory: 06/20/19 03:23 06/20/19 06/20/19 06/20/19 01:28 03:23 03:23 WBC 13.3 H RBC 4.54 Hgb 11.5 L Hct 35.2 L MCV 78 L MCH 25.5 L MCHC 32.8 RDW 17.3 H Plt Count 299 Seg Neutrophils % 83.9 H Urine Color YELLOW Urine Appearance CLEAR Urine pH 7.0 Ur Specific [place] 1.023 Urine Protein NEGATIVE Urine Glucose (UA) NEGATIVE Urine Ketones NEGATIVE Urine Blood SMALL H Urine Nitrite NEGATIVE Ur Leukocyte Esterase NEGATIVE Blood Type B POSITIVE Antibody Screen NEGATIVE Assessment and Plan(PN) - Assessment and Plan (1) History of depression Is this a current diagnosis for this admission?: Yes Plan: discharge planning consult placed on admission. Denies h/s ideation (2) Drug use affecting Qualifiers: Trimester: unspecified trimester Qualified Code(s): O99.320 - Drug use complicating , unspecified trimester Is this a current diagnosis for this admission?: Yes Plan: cessation encouraged, discharge planning placed (3) Delivery normal Is this a current diagnosis for this admission?: Yes Plan: routine pp care - Time Spent with Patient Time with patient: Less than 15 minutes Smoking Education Provided: Over 3 minutes Medications reviewed and adjusted accordingly: Yes - Disposition Anticipated Discharge: Home Within: within 48 hours
[2019-06-21] MEDS: ACETAMINOPHEN WITH CODEINE #3 TABLET PO PRN ×2 (00:49→22:29)
[2019-06-21] MEDS: IBUPROFEN 800 MG TABLET PO SCH ×3 (02:43→17:33)
[2019-06-21 07:41] LABS: HEMATOCRIT 31.3 % (36.0-47.0); HEMOGLOBIN 10.6 g/dL (12.0-15.5); MEAN CORPUSCULAR HEMOGLOBIN 26.3 pg (27.0-33.4); MEAN CORPUSCULAR HGB CONC 33.8 g/dL (32.0-36.0); MEAN CORPUSCULAR VOLUME 78 fl (80-97); PLATELET COUNT 268 10^3/uL (150-450); RED BLOOD COUNT 4.02 10^6/uL (3.72-5.28); RED CELL DISTRIBUTION WIDTH 17.7 % (11.5-14.0); WHITE BLOOD COUNT 7.8 10^3/uL (4.0-10.5)
[2019-06-21] MEDS: FERROUS SULFATE 325 MG TABLET PO SCH ×2 (10:14→17:33)
[2019-06-21] MEDS: FAMOTIDINE 20 MG TABLET PO SCH ×2 (10:14→22:16)
[2019-06-21] MEDS: DOCUSATE SODIUM 100 MG CAPSULE PO SCH ×2 (10:14→17:34)
[2019-06-21] MEDS: SENNOSIDES/DOCUSATE 8.6-50 MG 1 EACH TABLET PO SCH (10:14)
[2019-06-21] MEDS: PRENATAL VITAMIN W DHA CAPSULE PO SCH (10:14)
[2019-06-21] MEDS ORDERED: PROMETHAZINE HCL INJ 25 MG/1 ML VIAL IV PRN (11:30)
[2019-06-21] MEDS ORDERED: DIPH/PERTUSS(ACELL)/TETANUS VAC/PF 0.5 ML SYR (>=10YO) IM PRN (11:30)
[2019-06-21] MEDS ORDERED: MEASLES,MUMPS&RUBELLA VACC/PF 0.5 ML VIAL SUBCUT PRN (11:30)
--- NOTE | 2019-06-21 15:08 | PDOC PROGRESS REPORT ---
Subjective-OB Progress Note for:: 06/21/19 Subjective: 19yo G2 now P1 s/p ppd1. Ambulating and voiding without difficulty. Reports pain well controlled with medication, no concerns today Physical Exam (OB) Vital Signs: Temp Pulse Resp BP Pulse Ox 98.2 F 68 16 101/56 L 100 06/21/19 08:00 06/21/19 08:00 06/21/19 08:00 06/21/19 08:00 06/21/19 08:00 Intake & Output 06/20/19 06/21/19 06/22/19 06:59 06:59 06:59 Intake Total 480 Output Total 120 Balance 480 -120 Weight 100 kg - General General Appearance: Appears well In distress: None - PIH/Pre-Eclampsia DTR's: 1 + Clonus: Negative Headache: Absent Epigastric Pain: No Visual Changes: No - Episiotomy/Laceration Site Condition: N/A - Lochia Lochia Amount: Scant < 10 ml Lochia Color: Rubra/Red - Abdomen Description: Soft Hernia Present: No Fundal Description: Firm Fundal Height: u/u - u/2 - Respiratory Respiratory Status: No respiratory distress - Extremities Upper extremity: Normal inspection Lower extremities: Normal inspection - Neurological Cognition: Normal Orientation: AAOx4 - Psychological Associated symptoms: Normal affect, Normal mood Objective-Diagnostic Laboratory: 06/21/19 06:41 06/21/19 06:41 WBC 7.8 RBC 4.02 Hgb 10.6 L Hct 31.3 L MCV 78 L MCH 26.3 L MCHC 33.8 RDW 17.7 H Plt Count 268 Assessment and Plan(PN) - Assessment and Plan (1) History of depression Is this a current diagnosis for this admission?: Yes Plan: continue to monitor for s/s of depression,denies h/s ideation (2) Drug use affecting Qualifiers: Trimester: unspecified trimester Qualified Code(s): O99.320 - Drug use complicating , unspecified trimester Is this a current diagnosis for this admission?: Yes Plan: cessation encouraged (3) Delivery normal Is this a current diagnosis for this admission?: Yes Plan: routine pp care (4) Acute blood loss anemia Is this a current diagnosis for this admission?: Yes Plan: increase dietary iron and FeSO4 BID - Time Spent with Patient Time with patient: Less than 15 minutes Smoking Education Provided: Over 3 minutes Medications reviewed and adjusted accordingly: Yes - Disposition Anticipated Discharge: Home Within: within 24 hours
[2019-06-22] MEDS: IBUPROFEN 800 MG TABLET PO SCH ×2 (01:55→09:33)
[2019-06-22] MEDS: ACETAMINOPHEN WITH CODEINE #3 TABLET PO PRN (06:24)
[2019-06-22 08:46] VITALS: BP 101/56
[2019-06-22] MEDS: DOCUSATE SODIUM 100 MG CAPSULE PO SCH (09:33)
[2019-06-22] MEDS: FERROUS SULFATE 325 MG TABLET PO SCH (09:33)
[2019-06-22] MEDS: SENNOSIDES/DOCUSATE 8.6-50 MG 1 EACH TABLET PO SCH (09:33)
[2019-06-22] MEDS: FAMOTIDINE 20 MG TABLET PO SCH (09:36)
[2019-06-22] MEDS: PRENATAL VITAMIN W DHA CAPSULE PO SCH (09:36)
[2019-06-22] MEDS ORDERED: LIDOCAINE 1% INJ-PF (10 MG/ML) 30 ML SDV ONE ×2 (13:17→13:25)
--- NOTE | 2019-06-22 13:24 | PDOC DISCHARGE SUMMARY ---
Impression - Admit/DC Date/PCP Admission Date/Primary Care Provider: 06/20/19 03:03 EWA NICKERSON MD Discharge Date: 06/22/19 - Discharge Diagnosis (1) Acute blood loss anemia Is this a current diagnosis for this admission?: Yes (2) Delivery normal Is this a current diagnosis for this admission?: Yes (3) Drug use affecting Is this a current diagnosis for this admission?: Yes (4) History of depression Is this a current diagnosis for this admission?: Yes - Additional Information Resuscitation Status: Full Code Discharge Diet: Regular Discharge Activity: Activity As Tolerated, Pelvic Rest Referrals: EWA NICKERSON MD [Primary Care Provider] - Home Medications: Pediatric Multivitamin No.49 [Flintstones Gummies] 2 tab PO DAILY 06/17/19 Valacyclovir HCl [Valtrex 500 mg Tablet] 2 tab PO DAILY 06/17/19 HPI Gestational Age: 40.0 Reason(s) for Admission: Onset of Labor Procedures: NST Intrapartum Procedure(s): Spontaneous Vaginal Delivery Complication(s): Laceration-Vaginal, Laceration-Labial Laceration-Degree: 1st Hospital Course Hospital Course: Pt was complaining of burning with urination overnight. RN did exam, pt had 2 labial lacs and a vaginal laceration. On my exam this morning, she did have superficial lacerations. Offered pt to put sutures in the lower vaginal laceration to pull skin edges together for her comfort. Procedure done: Betadine used to clean, lidocaine 1% injected, skin edges pulled together with 3.0 chromic suture. Results Laboratory Results: WBC 7.8 10^3/uL (4.0-10.5) 06/21/19 06:41 RBC 4.02 10^6/uL (3.72-5.28) 06/21/19 06:41 Hgb 10.6 g/dL (12.0-15.5) L 06/21/19 06:41 Hct 31.3 % (36.0-47.0) L 06/21/19 06:41 MCV 78 fl (80-97) L 06/21/19 06:41 MCH 26.3 pg (27.0-33.4) L 06/21/19 06:41 MCHC 33.8 g/dL (32.0-36.0) 06/21/19 06:41 RDW 17.7 % (11.5-14.0) H 06/21/19 06:41 Plt Count 268 10^3/uL (150-450) 06/21/19 06:41 Lymph % (Auto) 12.3 % (13-45) L 06/20/19 03:23 [place] % (Auto) 3.2 % (3-13) 06/20/19 03:23 Eos % (Auto) 0.1 % (0-6) 06/20/19 03:23 Baso % (Auto) 0.5 % (0-2) 06/20/19 03:23 Absolute Neuts (auto) 11.2 10^3/uL (1.7-8.2) H 06/20/19 03:23 Absolute Lymphs (auto) 1.6 10^3/uL (0.5-4.7) 06/20/19 03:23 Absolute Monos (auto) 0.4 10^3/uL (0.1-1.4) 06/20/19 03:23 Absolute Eos (auto) 0.0 10^3/uL (0.0-0.6) 06/20/19 03:23 Absolute Basos (auto) 0.1 10^3/uL (0.0-0.2) 06/20/19 03:23 Seg Neutrophils % 83.9 % (42-78) H 06/20/19 03:23 Urine Color YELLOW 06/20/19 01:28 Urine Appearance CLEAR 06/20/19 01:28 Urine pH 7.0 (5.0-9.0) 06/20/19 01:28 Ur Specific [place] 1.023 06/20/19 01:28 Urine Protein NEGATIVE mg/dL (NEGATIVE) 06/20/19 01:28 Urine Glucose (UA) NEGATIVE mg/dL (NEGATIVE) 06/20/19 01:28 Urine Ketones NEGATIVE mg/dL (NEGATIVE) 06/20/19 01:28 Urine Blood SMALL (NEGATIVE) H 06/20/19 01:28 Urine Nitrite NEGATIVE (NEGATIVE) 06/20/19 01:28 Urine Bilirubin NEGATIVE (NEGATIVE) 06/20/19 01:28 Urine Urobilinogen 2.0 mg/dL (<2.0) H 06/20/19 01:28 Ur Leukocyte Esterase NEGATIVE (NEGATIVE) 06/20/19 01:28 Urine Ascorbic Acid NEGATIVE (NEGATIVE) 06/20/19 01:28 Urine Opiates Screen NEGATIVE 06/20/19 01:28 Urine Methadone Screen NEGATIVE 06/20/19 01:28 Ur Barbiturates Screen NEGATIVE 06/20/19 01:28 Ur Phencyclidine Scrn NEGATIVE 06/20/19 01:28 Ur Amphetamines Screen NEGATIVE 06/20/19 01:28 U Benzodiazepines Scrn NEGATIVE 06/20/19 01:28 Urine Cocaine Screen NEGATIVE 06/20/19 01:28 U Marijuana (THC) Screen UNCONFIRMED POSITIVE 06/20/19 01:28 RPR NONREACTIVE (NONREACTIVE) 06/20/19 03:23 Blood Type B POSITIVE 06/20/19 03:23 Antibody Screen NEGATIVE 06/20/19 03:23 Plan Plan of Treatment: f/u at [facility] 4 wks Time Spent: Less than 30 Minutes
== END 2019-06-22 15:36 | disposition home or self-care (01) | DRG 806 ==
LOC: LC 01:18 → LR 03:03 → 2S 05:11
PROVIDERS: ADMIT Obstetrics & Gynecology; ATTEND Obstetrics & Gynecology
PROC: 10E0XZZ Delivery of Products of Conception, External Approach (ICD-10-PCS; principal; 2019-06-20)
PROC: 0HQ9XZZ Repair Perineum Skin, External Approach (ICD-10-PCS; 2019-06-22)
PROC: 3E0234Z Introduction of Serum, Toxoid and Vaccine into Muscle, Percutaneous Approach (ICD-10-PCS; 2019-06-22)
DX: O99.334 Smoking (tobacco) complicating childbirth (principal); O98.32 Other infections with a predominantly sexual mode of transmission complicating childbirth; Z37.0 Single live birth; O99.324 Drug use complicating childbirth; O70.0 First degree perineal laceration during delivery; O62.3 Precipitate labor; F17.210 Nicotine dependence, cigarettes, uncomplicated; A60.00 Herpesviral infection of urogenital system, unspecified; O99.344 Other mental disorders complicating childbirth; F31.9 Bipolar disorder, unspecified; O99.824 Streptococcus B carrier state complicating childbirth; O77.0 Labor and delivery complicated by meconium in amniotic fluid; F12.90 Cannabis use, unspecified, uncomplicated; D64.9 Anemia, unspecified; O99.02 Anemia complicating childbirth; Z86.14 Personal history of Methicillin resistant Staphylococcus aureus infection; Z86.19 Personal history of other infectious and parasitic diseases; Z3A.40 40 weeks gestation of pregnancy
CPT/HCPCS: 36415; 80307; 81005; 85025; 85027; 86592; 86850; 86900; 86901; 90715; J2300; J2540; J2550; J2590; J3490